=== PATIENT | male | born 1945 | race Caucasian/White ===

== ENCOUNTER 2017-05-26 12:56 | Inpatient (IN) | payer MEDICAID, MEDICARE ==
[~2017-05-26] VITALS: Ht 177.8 cm; Wt 78.0 kg
--- NOTE | 2017-05-26 12:56 | NUR ---
BBRA FROM [facility] FOR SYNCOPE WHILE SITTING ON W/C NS-118 HYPOTENSIVE IN THE FIELD, IV NS GIVEN BY EMS
[2017-05-26] MEDS ORDERED: IV NS 0.9% 1,000 ML BAG IV ONE (13:30)
[2017-05-26 13:50] LABS: BASOPHILS % (AUTO) 0.9 % (0.0-2.0); CALCIUM, SERUM 8.3 mg/dL (8.5-10.1); CARBON DIOXIDE 27 mmol/L (21-32); CHLORIDE 106 mmol/L (98-107); CREATININE 1.2 mg/dL (0.6-1.3); EOSINOPHILS # (AUTO) 0.2 /CMM (0.0-0.7); EOSINOPHILS % (AUTO) 3.4 % (0.0-6.0); GLUCOSE 106 mg/dL (74-106); HEMATOCRIT 42 % (39-51); HEMOGLOBIN 14.5 g/dL (13.5-17.5); LYMPHOCYTES # (AUTO) 1.3 /CMM (0.8-4.8); MEAN CORPUSCULAR HEMOGLOBIN 31 PG (26.0-33.0); MEAN CORPUSCULAR HGB CONC 34 g/dl (31.0-36.0); MEAN CORPUSCULAR VOLUME 91 fL (80-96); MONOCYTES # (AUTO) 0.7 /CMM (0.1-1.30); MONOCYTES % (AUTO) 12.6 % (2.0-12.0); NEUTROPHILS # (AUTO) 3.2 /CMM (1.8-8.9); NEUTROPHILS % (AUTO) 59.1 % (43.0-81.0); PLATELET COUNT (AUTO) 103 /CMM (150-450); POTASSIUM 4.2 mmol/L (3.5-5.1); RDW COEFFICIENT OF VARIATION 13.5 (11.5-15.0); RED BLOOD CELL COUNT(AUTO) 4.65 MIL/uL (4.5-6.0); SODIUM SERUM 141 mmol/L (136-145); UREA NITROGEN, BLOOD 22 mg/dL (7-18); WHITE BLOOD COUNT (AUTO) 5.4 K/uL (4.3-11.0)
[2017-05-26 13:56] LABS: ALANINE AMINOTRANSFERASE 10 U/L (12-78); ALBUMIN 3.4 g/dL (3.4-5.0); ALKALINE PHOSPHATASE 92 U/L (46-116); ASPARTATE AMINOTRANSFERASE 14 U/L (15-37); BILIRUBIN,DIRECT 0.1 mg/dL (0.0-0.2); BILIRUBIN,TOTAL 0.3 mg/dL (0.2-1.0); TOTAL PROTEIN, SERUM 7.2 g/dL (6.4-8.2)
[2017-05-26 13:58] LABS: TROPONIN I < 0.017 ng/mL (0.00-0.056)
[2017-05-26 14:03] LABS: INR 1.12 (0.87-1.13); PROTHROMBIN TIME 11.7 SECS (9.5-12.7)
--- NOTE | 2017-05-26 14:40 | NUR ---
STRAIGHT CATH URINE SAMPLE COLLECTED SENT TO LAB
--- NOTE | 2017-05-26 14:58 | NUR ---
PT TAKENT TO CT
[2017-05-26 15:02] LABS: APPEARANCE,URINE CLOUDY (CLEAR); BILIRUBIN,URINE NEGATIVE (NEGATIVE); BLOOD, URINE 2+ Ery/uL (NEGATIVE); COLOR,URINE YELLOW (YELLOW); KETONES,URINE NEGATIVE (NEGATIVE); LEUKOCYTE ESTERASE ,URINE 3+ (NEGATIVE); NITRITE, URINE NEGATIVE (NEGATIVE); PROTEIN,URINE 1+ mg/dl (NEGATIVE); UGLUCOSE NEGATIVE (NEGATIVE); UROBILINOGEN,URINE 0.2 EU/dL (0.2)
[2017-05-26 15:24] LABS: BACTERIA,URINE Moderate /HPF (None Seen); SQUAMOUS EPITHELIAL CELL,UR Few /HPF (None Seen); WBC,URINE 51-80 /HPF (0-3)
[2017-05-26] MEDS ORDERED: PIPERACILLIN /TAZOBACTAM 2.25 G in IV D5W 50 ML IV ONE (17:00)
[2017-05-26] MEDS ORDERED: GABA300C PO (17:05)
[2017-05-26] MEDS ORDERED: TRAM50TA2 PO (17:05)
[2017-05-26] MEDS ORDERED: CHOL200026 PO (17:05)
[2017-05-26] MEDS ORDERED: PRIM50TA27 PO (17:05)
[2017-05-26] MEDS ORDERED: CARB-93 PO (17:05)
[2017-05-26] MEDS ORDERED: BISA10SU8 RC (17:05)
[2017-05-26] MEDS ORDERED: LEVO50TA8 PO (17:05)
[2017-05-26] MEDS ORDERED: ALEN70TA3 PO (17:05)
[2017-05-26] MEDS ORDERED: DOCU-141 PO (17:05)
[2017-05-26] MEDS ORDERED: MAGN400O6 PO (17:05)
[2017-05-26] MEDS ORDERED: TAMS-12 PO (17:05)
[2017-05-26] MEDS ORDERED: MAGNESIUM HYDROXIDE 30 ML UDC PO PRN (18:00)
[2017-05-26] MEDS ORDERED: BISACODYL SUPP (10 MG) 10 MG/SUPP.RECT SUPP.RECT RC PRN (18:00)
--- NOTE | 2017-05-26 18:30 | NUR ---
CALLED PHARMACY FOR PM MEDS
[2017-05-26] MEDS: CARBIDOPA/LEVODOPA 25/100 MG 1 UDTAB PO SCH ×2 (18:58→21:00)
[2017-05-26] MEDS: PRIMIDONE 50 MG TABLET PO SCH (18:59)
[2017-05-26] MEDS: CHOLECALCIFEROL 1,000 UNIT TABLET (VIT D3) PO SCH (18:59)
[2017-05-26] MEDS: GABAPENTIN 300 MG CAPSULE PO SCH (18:59)
[2017-05-26] MEDS: LEVOTHYROXINE SODIUM 50 MCG TABLET PO SCH (18:59)
[2017-05-26] MEDS ORDERED: TRAMADOL HCL 50 MG TABLET ONE (19:06)
--- NOTE | 2017-05-26 19:14 | NUR ---
GAVE REPORT TO NICOL MONTIEL FOR LOYD
--- NOTE | 2017-05-26 19:20 | NUR ---
Bridgett cooper in ED - 05/26/17 at 1931 by OLI IN N OUT CATH TAKEN OUT PER NO URINE RECEIVED. MD EGAN AWARE
[2017-05-26] MEDS: TRAMADOL HCL 50 MG TABLET PO SCH ×2 (20:03→21:00)
[2017-05-26] MEDS ORDERED: ONDANSETRON HCL/PF 4 MG/2 ML VIAL IV PRN (23:30)
[2017-05-26] MEDS ORDERED: ACETAMINOPHEN 325 MG TABLET PO PRN (23:30)
[2017-05-26] MEDS ORDERED: PANTOPRAZOLE 40 MG VIAL IV SCH (23:30)
[2017-05-26] MEDS ORDERED: IV NS 0.9% 1,000 ML BAG IV PRN (23:30)
[2017-05-26] MEDS ORDERED: ENOXAPARIN SODIUM 30 MG/0.3 ML DISP.SYRIN SQ SCH (23:30)
--- NOTE | 2017-05-26 23:30 | NUR ---
BONE CHAR KILN OPERATOR ADMIN NOTES PT WAS BROUGHT UP VIA GURNEY BY ER. A/O X2, CONFUSED AT TIMES. PT IS ON RA BREATHING EVENLY AND UNLABORED, NO SIGNS OF SOB OR DISTRESS. ORDERS TO BE ENTERED AND CARRIED OUT. TELE MONITOR SHOWING SB 56 WITH 1ST AV BLOCK. IV ACCESS IS INTACT AND PATENT. BED IS IN LOW AND LOCKED POSITION, CALL LIGHT WITHIN REACH. BED ALARM IS ON. WILL CONTINUE TO MONITOR PT
[2017-05-26] MEDS ORDERED: PANTOPRAZOLE 40 MG VIAL ONE (23:44)
[2017-05-26] MEDS ORDERED: ENOXAPARIN SODIUM 30 MG/0.3 ML DISP.SYRIN ONE (23:44)
[2017-05-26] MEDS ORDERED: PIPERACILLIN /TAZOBACTAM 3.375 G VIAL IV ONE (23:45)
[2017-05-26] MEDS: PIPERACILLIN /TAZOBACTAM 3.375 G in IV D5W 50 ML IV SCH (23:54)
[2017-05-26] MEDS: DOCUSATE SODIUM 100 MG CAPSULE PO SCH (23:55)
[2017-05-26] MEDS: TAMSULOSIN 0.4 MG CAP.SR.24H PO SCH (23:55)
[2017-05-27] MEDS ORDERED: PIPERACILLIN /TAZOBACTAM 3.375 G VIAL IV ONE (05:11)
[2017-05-27] MEDS: PIPERACILLIN /TAZOBACTAM 3.375 G in IV D5W 50 ML IV SCH ×4 (05:23→23:50)
--- NOTE | 2017-05-27 06:18 | NUR ---
REAL ESTATE LOAN PROCESSOR CLOSING NOTES PT IS IN BED SLEEPING, EASILY AROUSED. NO SIGNS OF SOB OR DISTRESS, BREATHING EVENLY AND UNLABORED ON RA, SATING >95%. ALL DUE MEDICATIONS GIVEN. ALL NEEDS WERE ANTICIPATED AND MET. BED IS IN LOW AND LOCKED POSITION, CALL LIGHT WITHIN REACH. WILL ENDORSE TO DAYSHIFT
--- NOTE | 2017-05-27 07:40 | NUR ---
SKIP OPERATOR OPENING NOTE PATIENT IS ALERT AND ORIENTED x2-3. NO PAIN AT THIS TIME. NO SOB OR DISTRESS NOTED. CALL LIGHT WITHIN REACH. SAFETY MEASURES IMPLEMENTED. ABLE TO COMMUNICATE NEEDS. IV ON LEFT FOREARM INTACT AND PATENT NO REDNESS OR SWELLING NOTED, IV FLUIDS RUNNING AT THIS TIME. TELE MONITOR-SB 56. AWAITING SWALLOW EVALUATION. WILL CONTINUE TO MONITOR THROUGHOUT SHIFT
[2017-05-27 08:00] VITALS: BP 128/92
[2017-05-27] MEDS: CARBIDOPA/LEVODOPA 25/100 MG 1 UDTAB PO SCH ×4 (08:15→21:54)
[2017-05-27] MEDS: PRIMIDONE 50 MG TABLET PO SCH ×2 (08:15→17:01)
[2017-05-27] MEDS: LEVOTHYROXINE SODIUM 50 MCG TABLET PO SCH (08:15)
[2017-05-27] MEDS: GABAPENTIN 300 MG CAPSULE PO SCH ×2 (08:15→17:01)
[2017-05-27] MEDS: TRAMADOL HCL 50 MG TABLET PO SCH ×2 (09:00→21:54)
[2017-05-27 10:04] LABS: BASOPHILS % (AUTO) 0.8 % (0.0-2.0); EOSINOPHILS # (AUTO) 0.2 /CMM (0.0-0.7); EOSINOPHILS % (AUTO) 5.8 % (0.0-6.0); HEMATOCRIT 40 % (39-51); HEMOGLOBIN 13.9 g/dL (13.5-17.5); LYMPHOCYTES # (AUTO) 1.3 /CMM (0.8-4.8); LYMPHOCYTES % (AUTO) 32.2 % (20.0-44.0); MEAN CORPUSCULAR HEMOGLOBIN 31 PG (26.0-33.0); MEAN CORPUSCULAR HGB CONC 35 g/dl (31.0-36.0); MEAN CORPUSCULAR VOLUME 90 fL (80-96); MONOCYTES # (AUTO) 0.4 /CMM (0.1-1.30); MONOCYTES % (AUTO) 8.4 % (2.0-12.0); NEUTROPHILS # (AUTO) 2.2 /CMM (1.8-8.9); NEUTROPHILS % (AUTO) 52.8 % (43.0-81.0); PLATELET COUNT (AUTO) 94 /CMM (150-450); RDW COEFFICIENT OF VARIATION 13.6 (11.5-15.0); RED BLOOD CELL COUNT(AUTO) 4.48 MIL/uL (4.5-6.0); WHITE BLOOD COUNT (AUTO) 4.2 K/uL (4.3-11.0)
[2017-05-27 11:30] LABS: CARBON DIOXIDE 21 mmol/L (21-32); CHLORIDE 109 mmol/L (98-107); CREATININE 1.3 mg/dL (0.6-1.3); GLUCOSE 168 mg/dL (74-106); POTASSIUM 4.2 mmol/L (3.5-5.1); SODIUM SERUM 143 mmol/L (136-145); UREA NITROGEN, BLOOD 17 mg/dL (7-18)
[2017-05-27 11:36] LABS: ALANINE AMINOTRANSFERASE 14 U/L (12-78); ALBUMIN 3.1 g/dL (3.4-5.0); ALKALINE PHOSPHATASE 85 U/L (46-116); ASPARTATE AMINOTRANSFERASE 18 U/L (15-37); BILIRUBIN,TOTAL 0.4 mg/dL (0.2-1.0); MAGNESIUM 1.6 mg/dL (1.8-2.4); PHOSPHORUS 2.3 mg/dL (2.5-4.9); TOTAL PROTEIN, SERUM 6.7 g/dL (6.4-8.2)
[2017-05-27] MEDS: IV NS 0.9% 1,000 ML IV PRN (13:59)
[2017-05-27] MEDS ORDERED: K PHOS NEUTRAL 250 MG TABLET PO ONE (14:30)
[2017-05-27 16:00] VITALS: BP 126/74
[2017-05-27] MEDS: CHOLECALCIFEROL 1,000 UNIT TABLET (VIT D3) PO SCH (17:03)
--- NOTE | 2017-05-27 18:30 | NUR ---
MS RN CLOSING NOTE PATIENT IS ALERT AND ORIENTED X3. NO PAIN AT THIS TIME. NO SOB OR DISTRESS NOTED. CALL LIGHT WITHIN REACH AT ALL TIMES. SAFETY MEASURES IMPLEMENTED. ABLE TO COMMUNICATE NEEDS. ALL DUE MEDICATIONS GIVEN ORDERED. ALL NURSING CARE NEEDS ATTENDED TO NEEDED. IV INTACT AND PATENT NO REDNESS OR SWELLING NOTED, IV FLUIDS RUNNING AT THIS TIME AT 100 ML/HR TOLERATING WELL. ON ROOM AIR TOLERATING WELL. MAGNESIUM REPLACING AT THIS TIME. LABS IN THE MORNING. PATIENT REFUSED PHYSICAL THERAPY THIS AFTERNOON. ECHO WILL BE DONE IN THE MORNING. WILL ENDORSE TO STAVE BLOCK ROLLER NURSE
[2017-05-27] MEDS: Magnesium 1GM/D5W 100ML PREMIX 100 ML IV SCH (18:48)
--- NOTE | 2017-05-27 19:20 | NUR ---
RN OPEN NOTES RECEIVED PATIENT AWAKE IN BED. A/O X2-3. NO SIGNS OF DISTRESS OR DISCOMFORT. BREATHING EVEN AND UNLABORED. IV ACCESS IN LFA WITH MAG CURRENTLY INFUSING, PATENT AND INTACT, NO SIGNS OF REDNESS OR INFILTRATION. BED IN LOW LOCKED POSITION WITH SIDE RAILS X2. CALL LIGHT WITHIN REACH. WILL CONTINUE TO MONITOR.
[2017-05-27 20:00] VITALS: BP 122/73
[2017-05-27 20:05] VITALS: BP 122/73
[2017-05-27] MEDS ORDERED: PANTOPRAZOLE 40 MG VIAL IV SCH (21:00)
[2017-05-27] MEDS ORDERED: ENOXAPARIN SODIUM 30 MG/0.3 ML DISP.SYRIN SQ SCH (21:00)
[2017-05-27] MEDS: DOCUSATE SODIUM 100 MG CAPSULE PO SCH (21:52)
[2017-05-27] MEDS: TAMSULOSIN 0.4 MG CAP.SR.24H PO SCH (21:52)
[2017-05-28] MEDS ORDERED: Magnesium 1GM/D5W 100ML PREMIX 100 ML IV ONE (00:05)
[2017-05-28] MEDS: Magnesium 1GM/D5W 100ML PREMIX 100 ML IV SCH (01:07)
[2017-05-28] MEDS: PIPERACILLIN /TAZOBACTAM 3.375 G in IV D5W 50 ML IV SCH ×2 (05:06→11:59)
[2017-05-28] MEDS: IV NS 0.9% 1,000 ML IV PRN (05:07)
[2017-05-28 06:33] LABS: BASOPHILS % (AUTO) 0.9 % (0.0-2.0); EOSINOPHILS # (AUTO) 0.3 /CMM (0.0-0.7); EOSINOPHILS % (AUTO) 5.9 % (0.0-6.0); HEMATOCRIT 39 % (39-51); HEMOGLOBIN 13.5 g/dL (13.5-17.5); LYMPHOCYTES # (AUTO) 1.5 /CMM (0.8-4.8); LYMPHOCYTES % (AUTO) 32.5 % (20.0-44.0); MEAN CORPUSCULAR HEMOGLOBIN 31 PG (26.0-33.0); MEAN CORPUSCULAR HGB CONC 35 g/dl (31.0-36.0); MEAN CORPUSCULAR VOLUME 91 fL (80-96); MONOCYTES # (AUTO) 0.5 /CMM (0.1-1.30); NEUTROPHILS # (AUTO) 2.4 /CMM (1.8-8.9); NEUTROPHILS % (AUTO) 49.7 % (43.0-81.0); PLATELET COUNT (AUTO) 101 /CMM (150-450); RDW COEFFICIENT OF VARIATION 13.4 (11.5-15.0); RED BLOOD CELL COUNT(AUTO) 4.31 MIL/uL (4.5-6.0); WHITE BLOOD COUNT (AUTO) 4.8 K/uL (4.3-11.0)
[2017-05-28 07:02] LABS: ALANINE AMINOTRANSFERASE 8 U/L (12-78); ALKALINE PHOSPHATASE 77 U/L (46-116); ASPARTATE AMINOTRANSFERASE 11 U/L (15-37); BILIRUBIN,TOTAL 0.4 mg/dL (0.2-1.0); CALCIUM, SERUM 7.9 mg/dL (8.5-10.1); CARBON DIOXIDE 26 mmol/L (21-32); CHLORIDE 110 mmol/L (98-107); CREATININE 1.3 mg/dL (0.6-1.3); GLUCOSE 106 mg/dL (74-106); MAGNESIUM 2.2 mg/dL (1.8-2.4); PHOSPHORUS 2.8 mg/dL (2.5-4.9); SODIUM SERUM 143 mmol/L (136-145); TOTAL PROTEIN, SERUM 6.3 g/dL (6.4-8.2); UREA NITROGEN, BLOOD 16 mg/dL (7-18)
[2017-05-28 07:05] LABS: TROPONIN I < 0.017 ng/mL (0.00-0.056)
[2017-05-28 08:00] VITALS: BP 149/84
[2017-05-28] MEDS: LEVOTHYROXINE SODIUM 50 MCG TABLET PO SCH (08:23)
[2017-05-28] MEDS: TRAMADOL HCL 50 MG TABLET PO SCH (08:23)
[2017-05-28] MEDS: GABAPENTIN 300 MG CAPSULE PO SCH (08:24)
[2017-05-28] MEDS: CARBIDOPA/LEVODOPA 25/100 MG 1 UDTAB PO SCH ×2 (08:24→12:00)
[2017-05-28] MEDS: PRIMIDONE 50 MG TABLET PO SCH (08:24)
[2017-05-28 09:48] LABS: THYROID STIMULATING HORMONE 2.231 uIU/mL (0.358-3.74)
--- NOTE | 2017-05-28 13:41 | NUR ---
RN CLOSING NOTES PATIENT AWAKE IN BED. A/O X2 . NO SIGNS OF DISTRESS OR DISCOMFORT. BREATHING EVEN AND UNLABORED. IV ACCESS IN RFA WITH ZOSYN CURRENTLY INFUSING, PATENT AND INTACT, NO SIGNS OF REDNESS OR INFILTRATION. ALL NEEDS MET. NO SIGNIFICANT CHAGNES. BED IN LOW LOCKED POSITION WITH SIDE RAILS X2. CALL LIGHT WITHIN REACH. PAT[facility] CALLED REPORT TO [facility]. SCHEDULED FOR PICKUP AT 1400. ENDORSED TO KACEY MONTIEL FOR LOYD.
--- NOTE | 2017-05-28 14:00 | NUR ---
DISCHARGED PT VIA AMBULANCE WITH STABLE V/S TO [facility].PT IS CONFUSED.REPORT CALLED IN TO DINESH FRAGOSO.PT HAS NO S/S OF PAIN OR DISTRESS.HEPLOCK REMOVED TO LT HAND WITH NO BLEEDING OR SWELLING NOTED ON THE SITE.
== END 2017-05-28 14:00 | DRG 48 ==
LOC: ER 12:59 → TRANSITION 18:22 → TELE 21:48 → MED 05-27 09:06
PROVIDERS: ADMIT Legal Medicine; ATTEND Legal Medicine
DX: G90.8 Other disorders of autonomic nervous system (principal); G93.40 Encephalopathy, unspecified; N18.4 Chronic kidney disease, stage 4 (severe); G20 Parkinson's disease; D69.6 Thrombocytopenia, unspecified; N39.0 Urinary tract infection, site not specified; F02.80 Dementia in other diseases classified elsewhere, unspecified severity, without behavioral disturbance, psychotic disturbance, mood disturbance, and anxiety; R13.10 Dysphagia, unspecified; G40.909 Epilepsy, unspecified, not intractable, without status epilepticus; I12.9 Hypertensive chronic kidney disease with stage 1 through stage 4 chronic kidney disease, or unspecified chronic kidney disease; E03.9 Hypothyroidism, unspecified; D64.9 Anemia, unspecified; K59.00 Constipation, unspecified; N40.0 Benign prostatic hyperplasia without lower urinary tract symptoms; N20.0 Calculus of kidney; M81.0 Age-related osteoporosis without current pathological fracture; Z87.820 Personal history of traumatic brain injury; Z88.5 Allergy status to narcotic agent; F32.9 Major depressive disorder, single episode, unspecified; F09 Unspecified mental disorder due to known physiological condition; M19.90 Unspecified osteoarthritis, unspecified site; Z79.899 Other long term (current) drug therapy
CPT/HCPCS: 36415; 70450-TC; 71045-TC; 80048-TC; 80053-TC; 80076-TC; 81000-TC; 82306; 83605-TC; 83735-TC; 84100-TC; 84439-TC; 84443-TC; 84484-TC; 85025-TC; 85730-TC; 87040-TC; 87081-TC; 87086-TC; 92526; 92611-TC; A4606; C9113; J1650; J2543; J3475; J7030; J7060; Z7610

== ENCOUNTER 2017-11-28 17:01 | Inpatient (IN) | payer MEDICAID, MEDICARE ==
[~2017-11-28] VITALS: Ht 177.8 cm; Wt 70.8 kg
[~2017-11-28 17:01] MED LIST: ALEN70TA3 PO; BISA10SU8 RC; CARB-93 PO; CHOL200026 PO; DOCU-141 PO; GABA300C PO; LEVO50TA8 PO; MAGN400O6 PO; PRIM50TA27 PO; TAMS-12 PO; TRAM50TA2 PO
--- NOTE | 2017-11-28 17:05 | NUR ---
BIBPA FROM [facility] D/T LEFT SIDED NECK MASS/LUMP NOTED THIS AM. NECK MASS IS TENDER TO TOUCH WITH SLIGHT REDNESS. PATIENT IS AFEBRILE, AIRWAY PATENT, NO SOB. VSS
--- NOTE | 2017-11-28 17:24 | NUR ---
IV ACCESSED TO [facility] 20. BLOOD SAMPLE COLLECTED AND SENT TO LAB
[2017-11-28] MEDS ORDERED: PIPERACILLIN /TAZOBACTAM 3.375 G in IV D5W 50 ML IV ONE (17:30)
[2017-11-28] MEDS ORDERED: IV NS 0.9% 1,000 ML BAG IV ONE ×2 (17:30→18:30)
[2017-11-28] MEDS ORDERED: VANCOMYCIN 1 GM in IV D5W 250 ML IV ONE (17:30)
[2017-11-28 17:37] LABS: BASOPHILS # (AUTO) 0.1 /CMM (0.0-0.2); BASOPHILS % (AUTO) 0.5 % (0.0-2.0); EOSINOPHILS % (AUTO) 0.7 % (0.0-6.0); HEMATOCRIT 46 % (39-51); HEMOGLOBIN 15.8 g/dL (13.5-17.5); LYMPHOCYTES # (AUTO) 1.4 /CMM (0.8-4.8); LYMPHOCYTES % (AUTO) 9.7 % (20.0-44.0); MEAN CORPUSCULAR HEMOGLOBIN 31 PG (26.0-33.0); MEAN CORPUSCULAR HGB CONC 34 g/dl (31.0-36.0); MEAN CORPUSCULAR VOLUME 91 fL (80-96); NEUTROPHILS # (AUTO) 11.9 /CMM (1.8-8.9); NEUTROPHILS % (AUTO) 82.1 % (43.0-81.0); PLATELET COUNT (AUTO) 131 /CMM (150-450); RDW COEFFICIENT OF VARIATION 12.9 (11.5-15.0); RED BLOOD CELL COUNT(AUTO) 5.09 MIL/uL (4.5-6.0); WHITE BLOOD COUNT (AUTO) 14.5 K/uL (4.3-11.0)
--- NOTE | 2017-11-28 17:37 | NUR ---
EKG IN PROGRESS
[2017-11-28 17:43] LABS: CALCIUM, SERUM 8.6 mg/dL (8.5-10.1); CARBON DIOXIDE 25 mmol/L (21-32); CHLORIDE 104 mmol/L (98-107); CREATININE 1.6 mg/dL (0.6-1.3); GLUCOSE 128 mg/dL (74-106); SODIUM SERUM 139 mmol/L (136-145); UREA NITROGEN, BLOOD 51 mg/dL (7-18)
[2017-11-28] MEDS ORDERED: PRIM50TA PO (17:44)
[2017-11-28] MEDS ORDERED: OMEG1CAP PO (17:44)
[2017-11-28] MEDS ORDERED: CALC500T52 PO (17:44)
[2017-11-28] MEDS ORDERED: MULT-447 PO (17:44)
[2017-11-28] MEDS ORDERED: ACET-868 PO (17:44)
[2017-11-28] MEDS ORDERED: LACT-58 PO (17:44)
[2017-11-28] MEDS ORDERED: POLY15DR40 EACHEYE (17:44)
[2017-11-28] MEDS ORDERED: NA P133E RC (17:44)
--- NOTE | 2017-11-28 18:03 | NUR ---
PT ON BED. VSS
[2017-11-28 18:16] LABS: INR 1.18 (0.87-1.13)
[2017-11-28] MEDS ORDERED: IOHEXOL-300 100 ML VIAL IV ONE (18:31)
--- NOTE | 2017-11-28 18:51 | NUR ---
PT IS BACK FROM CT
--- NOTE | 2017-11-28 19:10 | NUR ---
REPORT RECEIVED FROM DINESH JAMES FOR LOYD.
--- NOTE | 2017-11-28 19:13 | NUR ---
REPORT GIVEN TO DINESH RAPP
--- NOTE | 2017-11-28 20:18 | NUR ---
DIANE PAGED, ADA ACCOMMODATION CONSULTANT
--- NOTE | 2017-11-28 21:33 | NUR ---
MS 323-2 FOR DEHYDRATION, ADMITTING
--- NOTE | 2017-11-28 21:49 | NUR ---
REPORT GIVEN TO DINESH CASTANON FOR LOYD.
--- NOTE | 2017-11-28 21:55 | NUR ---
PT TRANSPORTED TO [facility] VIA STRETCHER WITH EMT. TIFFANIES.
[2017-11-28 22:00] VITALS: BP 137/83
--- NOTE | 2017-11-28 22:00 | NUR ---
ADMISSION NOTES: RECEIVED REPORT FROM TAMELA MONTIEL, [facility], CAME IN DUE TO LUMP/MASS ON NECK AREA, PT ADMITTED UNDER EPIC GROUP DX OF SIALADENITIS, ACUTE RENAL FAILURE, DHN. PT BROUGHT TO THE UNIT VIA GURNEY, A/O X1-2, GARBLED SPEECH, ALSO C/O DIFFICULTY SWALLOWING AND UNABLE TO EAT FOR 2DAYS, NOTED TONGUE SWELLING TOO. ORIENTED PT TO UNIT POLICY AND HOURLY ROUNDING, USE OF CALL LIGHT. PT HAS RIGHT AC G 20 PATENT AND FLUSHING WELL, ON HL. SKIN ASSESSMENT PERFORMED WITH ANOTHER N, SKIN ISSUES NOTED, PICTURES TAKEN, ATTACHED TO CHART, WOUND CONSULT ORDERED, KCI WILL BE ORDER. BLE OFFLOADED. SUCTION SET UP SECURED, PLACED ON ASPIRATION PRECAUTION. INVENTORY OF BELONGING COMPLETED BY DENTAL INSURANCE COORDINATOR. SAFETY PRECAUTIONS FOR FALL INITIATED, CALL LIGHT IN REACH, WILL CONTINUE MONITORING PT.
--- NOTE | 2017-11-28 22:30 | NUR ---
RN NOTES: SUCTION ORAL SECRETIONS. ORAL CARE PROVIDED
[2017-11-28] MEDS ORDERED: KETOROLAC TROMETHAMINE INJ 30 MG/ML VIAL IV PRN (23:00)
[2017-11-28] MEDS ORDERED: ONDANSETRON HCL/PF 4 MG/2 ML VIAL IVP PRN (23:00)
[2017-11-28] MEDS ORDERED: LORAZEPAM INJ 2 MG/ML VIAL IV PRN (23:00)
[2017-11-28] MEDS ORDERED: BISACODYL SUPP (10 MG) 10 MG/SUPP.RECT SUPP.RECT RC PRN (23:00)
[2017-11-28] MEDS ORDERED: ACETAMINOPHEN 650 MG/SUPP.RECT RC PRN (23:00)
[2017-11-28] MEDS ORDERED: NA PHOS,M-B/NA PHOS,DI-BA 1 EA ENEMA RC PRN (23:00)
--- NOTE | 2017-11-28 23:00 | NUR ---
RN NOTES: PT HAS POLST FROM FACILITY. WRITTEN/SIGNED ON 09/11/16, SIGNED BY ORLANDO CANSECO, COUSIN OF THE PT. THE POLST IS "DNR, COMFORT FOCUSED TREATMENT, NO ARTIFICIAL MEANS OF NUTRITION". INFORMED AD OPERATIONS INTERN ABOUT IT, WILL FOLLOW UP WITH FAMILY/DPOA IN AM IF WOULD LIKE TO CONTINUE WITH THE CODE STATUS DNR/COMFORT FOCUSED TREATMENT. MADE AWARE.
[2017-11-28] MEDS ORDERED: PIPERACILLIN /TAZOBACTAM 2.25 G VIAL IV ONE (23:10)
[2017-11-28] MEDS: IV D5/0.45 NACL 1,000 ML IV PRN (23:33)
[2017-11-28] MEDS: PIPERACILLIN /TAZOBACTAM 2.25 G in IV NS 0.9% 50 ML IV SCH (23:34)
--- NOTE | 2017-11-28 23:34 | NUR ---
ADMINISTRATION OF ZOSYN: NEW ORDER FROM , MEDICATION OVERRIDE BY CIRCULAR KNIFE CUTTER MACHINE DELONG, UPON SCANNING MEDICATION IT APPEARS "UNKNOWN NDC NUMBER", ADMINISTER MEDICATION AT THIS TIME, 5RIGHT'S VERIFIED. PER CIRCULAR KNIFE CUTTER MACHINE TO USE THE NEW PROTOCOL ZOSYN TO BE INFUSED FOR 6HRS, SO ZOSYN ADMINISTERED AT 8.33ML/HR.
--- NOTE | 2017-11-29 01:29 | NUR ---
RN NOTES: SEEN PT SLEEPING AT THIS TIME, RESPIRATION EVEN AND UNLABORED
[2017-11-29] MEDS ORDERED: PIPERACILLIN /TAZOBACTAM 2.25 G VIAL IV ONE (05:36)
[2017-11-29] MEDS: PIPERACILLIN /TAZOBACTAM 2.25 G in IV NS 0.9% 50 ML IV SCH (05:40)
[2017-11-29 06:51] LABS: BASOPHILS % (AUTO) 0.3 % (0.0-2.0); EOSINOPHILS % (AUTO) 1.7 % (0.0-6.0); HEMATOCRIT 41 % (39-51); HEMOGLOBIN 14.3 g/dL (13.5-17.5); LYMPHOCYTES # (AUTO) 1.4 /CMM (0.8-4.8); LYMPHOCYTES % (AUTO) 13.2 % (20.0-44.0); MEAN CORPUSCULAR HEMOGLOBIN 32 PG (26.0-33.0); MEAN CORPUSCULAR HGB CONC 35 g/dl (31.0-36.0); MEAN CORPUSCULAR VOLUME 92 fL (80-96); MONOCYTES % (AUTO) 9.5 % (2.0-12.0); NEUTROPHILS % (AUTO) 75.3 % (43.0-81.0); PLATELET COUNT (AUTO) 105 /CMM (150-450); RDW COEFFICIENT OF VARIATION 13.1 (11.5-15.0); RED BLOOD CELL COUNT(AUTO) 4.46 MIL/uL (4.5-6.0); WHITE BLOOD COUNT (AUTO) 10.6 K/uL (4.3-11.0)
--- NOTE | 2017-11-29 06:52 | NUR ---
RN CLOSING NOTES: PT IN BED, REMAINS A/O X1-2, ON 2L NC RESPIRATION EVEN AND UNLABORED. KEPT ON ASPIRATION PRECAUTION, SUCTION SET UP SECURED. IV ACCESS REMAIN PATENT AND FLUSHING WELL, INFUSING WITH D5 1/2 NS AT 70 ML/HR. BLE KEPT OFFLOADED. VS REMAINS STABLE, NEEDS ATTENDED. AWAITING WOUND CARE CONSULT, KCI, FOR SPEECH EVAL. SAFETY PRECAUTIONS FOR FALL REMAINS ENGAGED, CALL LIGHT IN REACH, WILL ENDORSE TO DAY RN FOR LOYD.
[2017-11-29 07:19] LABS: ALANINE AMINOTRANSFERASE 15 U/L (12-78); ALBUMIN 2.7 g/dL (3.4-5.0); ALKALINE PHOSPHATASE 67 U/L (46-116); ASPARTATE AMINOTRANSFERASE 18 U/L (15-37); BILIRUBIN,TOTAL 0.5 mg/dL (0.2-1.0); CALCIUM, SERUM 7.6 mg/dL (8.5-10.1); CARBON DIOXIDE 24 mmol/L (21-32); CHLORIDE 109 mmol/L (98-107); CREATININE 1.3 mg/dL (0.6-1.3); GLUCOSE 127 mg/dL (74-106); PHOSPHORUS 1.8 mg/dL (2.5-4.9); POTASSIUM 4.2 mmol/L (3.5-5.1); SODIUM SERUM 140 mmol/L (136-145); TOTAL PROTEIN, SERUM 6.9 g/dL (6.4-8.2); UREA NITROGEN, BLOOD 43 mg/dL (7-18)
[2017-11-29 07:28] LABS: CHOLESTEROL 94 mg/dL (<200); HDL CHOLESTEROL 24 mg/dL (40-60); LDL 60 mg/dL (0-99); THYROID STIMULATING HORMONE 3.113 uIU/mL (0.358-3.74); TRIGLYCERIDES 71 mg/dL (30-150)
--- NOTE | 2017-11-29 07:45 | NUR ---
MS MONTIEL OPENING NOTE RECEIVED BEDSIDE SBAR REPORT ON THE PATIENT. PATIENT IS A/O X4, ASLEEP, AWAKEN EASILY IN BED. BED IS LOCKED IN LOWEST POSITION, SIDE RAILS UP X3,BED ALARM IS ON. PATIENT IS UNABLE TO AMBULATE, BUT INDEPENDENT WITH BED MOBILITY. CALL LIGHT WITHIN REACH. EDUCATED THE PATIENT TO CALL FOR ASSISTANCE USING THE CALL LIGHT. PATIENT VERBALIZED UNDERSTANDING. CHEST RISING EQUALLY, BILATERALLY. SPO2 94% ON 2 LITERS OF OXYGEN VIA NASAL CANNULA. . VS WNL. LEFT NARE NGT PRESENT ON LOW INTERMITTENT SUCTION ORDERED. DENIES PAIN/DISCOMFORT AT THIS TIME. WILL CONTINUE TO ASSESS/MONITOR THROUGHOUT THE SHIFT. Addendum: 11/29/17 at 1853 by HAMZAH GEE RN PATIENT DOES NOT HAVE AN NG TUBE
[2017-11-29 08:00] VITALS: BP 122/62
--- NOTE | 2017-11-29 08:16 | NUR ---
DOCUMENTED PREVIOUS SHIFT'S MEDICATIONS NON-ADMINISTERED TO RID OF THE RED REMINDER
[2017-11-29] MEDS: PRIMIDONE 50 MG TABLET PO SCH ×2 (09:00→16:42)
[2017-11-29] MEDS: CARBIDOPA/LEVODOPA 25/100 MG 1 UDTAB PO SCH ×4 (09:00→21:00)
[2017-11-29] MEDS: POLYVINYL ALCOHOL 15 ML BOTTLE OP SCH ×3 (09:13→16:44)
[2017-11-29] MEDS: PANTOPRAZOLE 40 MG VIAL IV SCH (09:14)
--- NOTE | 2017-11-29 09:14 | NUR ---
PATIENT FAILED NURSING SWALLOW EVALUATION. DUE TO SWELLING OF THE TONGUE PRESENTS AT HIGH RISK OF ASPIRATION. ASPIRATION PRECAUTIONS IN PLACE. PATIENT PLACED NPO. WILL INFORM
--- NOTE | 2017-11-29 10:35 | NUR ---
DISCUSSED PATIENT'S CODE STATUS WITH THE FAMILY AT THE BEDSIDE. POLST PRESENTS IN CHART DNR. CODE STATUS TO BE CHANGED TO DNR. CHARGE NURSE GOLDIE ROBBINS.
[2017-11-29] MEDS ORDERED: Sodium Phosphate 7.5 MMOL in IV D5W 100 ML IV ONE (11:00)
--- NOTE | 2017-11-29 11:45 | NUR ---
RECEIVED VERBAL ORDERS FROM DR. MACIAS. ORDERS READ BACK AND VERIFIED. WILL FOLLOW ORDERS RECEIVED.
[2017-11-29] MEDS ORDERED: PIPERACILLIN /TAZOBACTAM 3.375 G in IV NS 0.9% 50 ML IV SCH (12:00)
[2017-11-29] MEDS ORDERED: ALBUTEROL FS 2.5 MG/3 ML VIAL.NEB NEB SCH (13:30)
[2017-11-29] MEDS: ALBUTEROL FS 2.5 MG/3 ML VIAL.NEB NEB SCH ×2 (13:42→19:38)
[2017-11-29 14:00] VITALS: BP 118/68
--- NOTE | 2017-11-29 15:44 | NUR ---
Patient resides at [facility] [phone] currently on bedhold x7days. Patient requires max assist with adl's. bed/chair fast most of the time . Current plan is to dc back to SNF once discharge. Addendum: 11/29/17 at 1545 by DERICK CARVAJAL RN Amended: Links added.
[2017-11-29 16:00] VITALS: BP 118/68
--- NOTE | 2017-11-29 16:58 | NUR ---
Increase IV rate to 100ml/hr per Dr Wilson
[2017-11-29] MEDS: IV D5/0.45 NACL 1,000 ML IV PRN (17:02)
[2017-11-29] MEDS: PIPERACILLIN /TAZOBACTAM 3.375 G in IV D5W 50 ML IV SCH (17:03)
[2017-11-29] MEDS ORDERED: FEE PK DOSING 1 MIN EA MC ONE (18:41)
--- NOTE | 2017-11-29 18:50 | NUR ---
MS RN CLOSING NOTE PATIENT IS A/O X4, ASLEEP, AWAKEN EASILY IN BED. BED IS LOCKED IN LOWEST POSITION, SIDE RAILS UP X3,BED ALARM IS ON. PATIENT IS UNABLE TO AMBULATE, BUT INDEPENDENT WITH BED MOBILITY. CALL LIGHT WITHIN REACH. EDUCATED THE PATIENT TO CALL FOR ASSISTANCE USING THE CALL LIGHT. PATIENT VERBALIZED UNDERSTANDING. CHEST RISING EQUALLY, BILATERALLY. SPO2 95% ON 2 LITERS OF OXYGEN VIA NASAL CANNULA. PATIENT SUCTIONED NEEDED THROUGHOUT THE SHIFT. SKIN CARE PROVIDED APROPPPRIATE. PATIENT REPOSITIONED EVERY TWO HOURS TO MAINTAIN FUNCTIONAL ALIGNMENT OF THE LIMBS. SPECIALTY MATRASS IN PLACE. RN SPOKE TO THE FAMILY/DPOA OVER THE PHONE GIVING THE UPDATES ON THE PATIENT'S CONDITION. VS WNL THROUGHOUT THE SHIFT. DENIES PAIN/DISCOMFORT AT THIS TIME. WILL ENDORSE TO THE INSURANCE SPECIALIST NURSE FOR LOYD.
--- NOTE | 2017-11-29 19:00 | NUR ---
MS RN OPENING NOTE Patient was seen sleeping in bed in high artis's position, but awoke easily to name. Patient is AAOx3, breathing on 2L O2 NC with no SOB, and no signs of acute distress. D5 1/2 NS is running through the right AC. Bed is in low/locked position, two side rails up, and call hodges within reach. Patient has no immediate needs or concerns at this time. Will continue to monitor.
[2017-11-29 20:00] VITALS: BP 128/87
[2017-11-29] MEDS: VANCOMYCIN 0.75 GM in IV D5W 250 ML IV SCH (20:07)
[2017-11-29] MEDS: TAMSULOSIN 0.4 MG CAP.SR.24H PO SCH (21:08)
[2017-11-30] MEDS: PIPERACILLIN /TAZOBACTAM 3.375 G in IV D5W 50 ML IV SCH ×4 (00:20→18:12)
[2017-11-30] MEDS: IV D5/0.45 NACL 1,000 ML IV PRN (05:13)
--- NOTE | 2017-11-30 06:51 | NUR ---
MS CLOSING NOTES Patient is AAOx2, breathing on 3L O2 NC with no SOB, and no signs of acute distress. Patient has moist cough and requires aspiration precautions; oral suction was provided throughout the shift as needed. Suction equipment is at the bedside. Patient slept intermittently throughout the night with no complications. D5 1/2NS is running through the right AC. Patient was turned and repositioned q2h. Bed is low/locked, in high artis's position, two side rails up, and call hodges within reach. All patient needs have been addressed this shift. Patient care endorsed to day shift nurse.
--- NOTE | 2017-11-30 07:22 | NUR ---
RN OPENING NOTES RECEIVED PATIENT IN BED RESTING. A/OX 2-3. ON 2LPM O2, SATTING @ 97%. HOB ELEVATED. NO ACUTE DISTRESS, NO SOB. NO COMPLAINTS OF PAIN AT THIS TIME. IV SITE INTACT AND PATENT. KEPT PATIENT SAFE AND COMFORTABLE. KEPT NPO, FOR SWALLOW EVAL. BED IN LOW/LOCKED POSITION, SIDERAILS UPX2, CALL LIGHT IN REACH. WILL CONTINUE TO MONITOR ACCORDINGLY
--- NOTE | 2017-11-30 07:25 | NUR ---
RN NOTES PER STEEL RULE DIE MAKER APPRENTICE, PREVIOUS RN VERIFIED PATIENT'S FAMILY REGARDING THE MEDICATION MYSOLINE (VERIFIED THAT PATIENT DOES NOT HAVE A HX OF SEIZURE AND PATIENT HAD BEEN HELD OF MYSOLINE BEFORE PER FAMILY).
[2017-11-30] MEDS: ALBUTEROL FS 2.5 MG/3 ML VIAL.NEB NEB SCH ×3 (07:35→19:48)
[2017-11-30] MEDS: VANCOMYCIN 0.75 GM in IV D5W 250 ML IV SCH ×2 (07:56→20:35)
[2017-11-30 08:00] VITALS: BP 114/63
[2017-11-30] MEDS: PANTOPRAZOLE 40 MG VIAL IV SCH (08:02)
[2017-11-30] MEDS: POLYVINYL ALCOHOL 15 ML BOTTLE OP SCH ×3 (08:05→18:12)
[2017-11-30 08:06] LABS: CARBON DIOXIDE 23 mmol/L (21-32); CHLORIDE 110 mmol/L (98-107); CREATININE 1.2 mg/dL (0.6-1.3); GLUCOSE 125 mg/dL (74-106); POTASSIUM 3.7 mmol/L (3.5-5.1); SODIUM SERUM 141 mmol/L (136-145); UREA NITROGEN, BLOOD 26 mg/dL (7-18)
[2017-11-30] MEDS: PRIMIDONE 50 MG TABLET PO SCH ×2 (08:19→17:00)
[2017-11-30] MEDS: CARBIDOPA/LEVODOPA 25/100 MG 1 UDTAB PO SCH ×4 (08:19→21:00)
[2017-11-30 11:11] LABS: HEMATOCRIT 39 % (39-51); MEAN CORPUSCULAR HEMOGLOBIN 31 PG (26.0-33.0); MEAN CORPUSCULAR HGB CONC 34 g/dl (31.0-36.0); MEAN CORPUSCULAR VOLUME 93 fL (80-96); RDW COEFFICIENT OF VARIATION 13.7 (11.5-15.0); RED BLOOD CELL COUNT(AUTO) 4.13 MIL/uL (4.5-6.0)
[2017-11-30 11:12] LABS: EOSINOPHILS % (AUTO) 4.6 % (0.0-6.0); LYMPHOCYTES % (AUTO) 22.6 % (20.0-44.0); NEUTROPHILS % (AUTO) 60.8 % (43.0-81.0); PLATELET COUNT (AUTO) 116 /CMM (150-450)
[2017-11-30 16:00] VITALS: BP 11/75
--- NOTE | 2017-11-30 19:33 | NUR ---
RN CLOSING NOTES PATIENT IN STABLE CONDITION. ALL NEEDS ATTENDED AND PROVIDED. KEPT PATIENT SAFE AND COMFORTABLE. TURNED AND REPOSITIONED EVERY 2 HRS NEEDED. BED IN LOW/LOCKED POSITION, SIDERAILS UP, HOB ELEVATED, CALL LIGHT IN REACH. ENDORSED TO NIGHT RN FOR LOYD.
--- NOTE | 2017-11-30 19:35 | NUR ---
MS/RN OPENING NOTES PT RECEIVED AWAKE, HOB ELEVATED FOR GOOD LUNG EXPANSION. BREATHING IS EVEN AND UNLABORED. DENIES SOB AND PAIN. NO S/S OF DISTRESS NOTED. ON CONTINUOUS PULSE OX SHOWING SPO2 94%. ON 3L O2 VIA NC. SUCTION SETUP AT BEDSIDE. IV TO RFA PATENT AND INTACT RUNNING IVF ORDERED. ABLE TO MAKE NEEDS KNOWN. BED IN LOW/LOCKED POSITION WITH CALL LIGHT IN REACH. SIDE RAILS UPX3 WITH BED ALARM ON FOR SAFETY. WILL CONTINUE TO MONITOR
[2017-11-30 20:00] VITALS: BP 115/64
[2017-11-30 20:33] VITALS: BP 115/64
--- NOTE | 2017-11-30 20:40 | NUR ---
MS/RN NOTES PT HEARD WITH EXCESSIVE SECRETIONS. PT REFUSING SUCTION. EXPLAINED RISKS/BENEFITS X3. PT STILL REFUSING. STATES HE "DOESNT NEED SUCTION". SPO2 90% ON 3L O2 VIA NC. WILL CONTINUE TO MONITOR Addendum: 11/30/17 at 2117 by VARINDER JOHNSTON RN SPO2 86-89% ON 3L O2. MANAGER PERIOPERATIVE AT BEDSIDE. EXPLAINED TO PT X3 ABOUT RISKS/BENEFITS OF SUCTIONING AND RETAINING SECRETIONS. PT AGREED TO ORAL SUCTION. PT TOLERATED WELL.
--- NOTE | 2017-11-30 20:46 | NUR ---
MS/RN NOTES APPLIED WARM WET WASHCLOTH TO LEFT CHEEK
[2017-11-30] MEDS: TAMSULOSIN 0.4 MG CAP.SR.24H PO SCH (21:17)
[2017-12-01] MEDS: PIPERACILLIN /TAZOBACTAM 3.375 G in IV D5W 50 ML IV SCH ×5 (00:07→23:26)
[2017-12-01] MEDS: IV D5/0.45 NACL 1,000 ML IV PRN ×2 (00:14→15:34)
--- NOTE | 2017-12-01 06:42 | NUR ---
MS/RN CLOSING NOTES PT ASLEEP, AROUSABLE TO NAME. HOB ELEVATED. REMAINS ON 3L O2 VIA NC, BREATHING EVEN AND UNLABORED, WITH CONTINUOUS PULSE OX. CURRENT SPO2 92%. NO S/S OF SOB NOTED, DENIES PAIN. SUCTION SETUP AT BEDSIDE. SUCTIONED PT PRN. APPLIED WARM WET TOWELS TO LEFT CHEEK/NECK Q2H ORDERED. IV TO RFA PATENT AND INTACT RUNNING IVF ORDERED. ASPIRATION PRECAUTIONS IMPLEMENTED. TURNED/REPOSITIONED Q2H. HEELS OFFLOADED. WILL ENDORSE TO DAY SHIFT RN LOYD.
[2017-12-01] MEDS: ALBUTEROL FS 2.5 MG/3 ML VIAL.NEB NEB SCH ×3 (07:03→19:40)
--- NOTE | 2017-12-01 07:17 | NUR ---
RN OPENING NOTES RECEIVED PATIENT IN BED RESTING. A/OX 2-3, HOB ELEVATED FOR GOOD LUNG EXPANSION. BREATHING IS EVEN AND UNLABORED. DENIES SOB AND PAIN. NO S/S OF DISTRESS NOTED. ON CONTINUOUS PULSE OX SHOWING SPO2 94%. ON 3L O2 VIA NC. SUCTION SETUP AT BEDSIDE. IV TO RFA PATENT AND INTACT RUNNING IVF ORDERED. ABLE TO MAKE NEEDS KNOWN. BED IN LOW/LOCKED POSITION WITH CALL LIGHT IN REACH. SIDE RAILS UPX3 WITH BED ALARM ON FOR SAFETY. WILL CONTINUE TO MONITOR ACCORDINGLY
[2017-12-01 08:00] VITALS: BP 132/80
[2017-12-01 08:20] LABS: CALCIUM, SERUM 8.2 mg/dL (8.5-10.1); CARBON DIOXIDE 23 mmol/L (21-32); CHLORIDE 107 mmol/L (98-107); CREATININE 1.2 mg/dL (0.6-1.3); GLUCOSE 106 mg/dL (74-106); MAGNESIUM 1.7 mg/dL (1.8-2.4); PHOSPHORUS 2.6 mg/dL (2.5-4.9); POTASSIUM 3.4 mmol/L (3.5-5.1); SODIUM SERUM 138 mmol/L (136-145); UREA NITROGEN, BLOOD 16 mg/dL (7-18); VANCOMYCIN,TROUGH 17 ug/ml (12-20)
[2017-12-01 08:23] LABS: BASOPHILS % (AUTO) 0.7 % (0.0-2.0); EOSINOPHILS % (AUTO) 6.6 % (0.0-6.0); HEMATOCRIT 35 % (39-51); HEMOGLOBIN 12.6 g/dL (13.5-17.5); LYMPHOCYTES # (AUTO) 1.4 /CMM (0.8-4.8); LYMPHOCYTES % (AUTO) 24.9 % (20.0-44.0); MEAN CORPUSCULAR HEMOGLOBIN 33 PG (26.0-33.0); MEAN CORPUSCULAR HGB CONC 36 g/dl (31.0-36.0); MEAN CORPUSCULAR VOLUME 91 fL (80-96); MONOCYTES # (AUTO) 0.6 /CMM (0.1-1.30); MONOCYTES % (AUTO) 10.4 % (2.0-12.0); NEUTROPHILS # (AUTO) 3.3 /CMM (1.8-8.9); NEUTROPHILS % (AUTO) 57.4 % (43.0-81.0); PLATELET COUNT (AUTO) 103 /CMM (150-450); RDW COEFFICIENT OF VARIATION 12.4 (11.5-15.0); RED BLOOD CELL COUNT(AUTO) 3.85 MIL/uL (4.5-6.0); WHITE BLOOD COUNT (AUTO) 5.7 K/uL (4.3-11.0)
[2017-12-01] MEDS: CARBIDOPA/LEVODOPA 25/100 MG 1 UDTAB PO SCH ×4 (09:00→20:18)
[2017-12-01] MEDS: PRIMIDONE 50 MG TABLET PO SCH ×2 (09:00→17:14)
[2017-12-01] MEDS: POLYVINYL ALCOHOL 15 ML BOTTLE OP SCH ×3 (09:05→17:15)
[2017-12-01] MEDS: PANTOPRAZOLE 40 MG VIAL IV SCH (09:05)
[2017-12-01] MEDS: VANCOMYCIN 0.75 GM in IV D5W 250 ML IV SCH ×2 (09:05→19:56)
[2017-12-01] MEDS ORDERED: Magnesium 1GM/D5W 100ML PREMIX 100 ML IV SCH (10:00)
[2017-12-01] MEDS ORDERED: POTASSIUM CHLORIDE 20 MEQ POWDER PACKET PO SCH (10:00)
[2017-12-01] MEDS ORDERED: POTASSIUM CHLORIDE 20 MEQ TAB.PRT.SR PO ONE (10:00)
--- NOTE | 2017-12-01 10:48 | NUR ---
RN NOTES CHANGED KDUR 40 MEQ TABLET TO KLORCON 40 MEQ PACKET. VERIFIED WITH PHARMACY
[2017-12-01] MEDS ORDERED: POTASSIUM CHLORIDE 20 MEQ POWDER PACKET PO ONE (11:00)
[2017-12-01 16:00] VITALS: BP 134/76
--- NOTE | 2017-12-01 18:30 | NUR ---
PATIENT TOLERATED DIET WELL. ATE 50% LUNCH AND 75% DINNER.
--- NOTE | 2017-12-01 19:20 | NUR ---
MS RN OPENING NOTES: RECEIVED PT IN BED AND IS ON 2LPM VIA NC. LEFT SIDED SWELLING OF FACE NOTED. PT AWAKE AND IS A/OX2. SPEECH IS UNCLEAR BUT PT ABLE TO MAKE NEEDS KNOWN. PT HAS IV AND IS BEING INFUSED WITH IV D5 1/2 NS AT 100ML/HR. PT ON CONT PULSE OX. CALL LIGHT WITHIN PT'S REACH. BED KEPT IN LOW, LOCKED POSITION, AND SIDE RAILS X 2UP. WILL CONTINUE TO MONITOR PT.
[2017-12-01 20:00] VITALS: BP 134/73
[2017-12-01] MEDS: TAMSULOSIN 0.4 MG CAP.SR.24H PO SCH (21:38)
[2017-12-02] MEDS: IV D5/0.45 NACL 1,000 ML IV PRN (02:14)
--- NOTE | 2017-12-02 04:18 | NUR ---
MS RN NOTES: PT FOUND IN ROOM WITH IV PULLED OUT. R ARM ELEVATED. NEW IV STARTED ON R HAND #[id number].
[2017-12-02] MEDS: PIPERACILLIN /TAZOBACTAM 3.375 G in IV D5W 50 ML IV SCH ×2 (05:28→13:19)
--- NOTE | 2017-12-02 06:42 | NUR ---
MS RN CLOSING NOTES: ALL NEEDS WERE ATTENDED AND ANTICIPATED FOR. PT ON 2LPM VIA NC AND IS ON CONT PULSE OX. WARM TOWELS APPLIED TO LEFT SIDE OF FACE TO HELP DECREASE SWELLING. PT AT THIS TIME DOES NOT WANT IT HE WANTS TO REST AND IT IS WET. SUCTION AT BEDSIDE FOR ASPIRATION PRECAUTIONS. IV IS ON L HAND IS BEING INFUSED WITH IV D5 1/2 NS AT 100ML/HR. BED ALARM ACTIVATED. PT ON SCD PUMPS. PT TURNED AND REPOSITIONED Q2HR. CALL LIGHT WITHIN PT'S REACH. BED KEPT IN LOW, LOCKED POSITION, AND SIDE RAILS X 3 UP. WILL ENDORSE TO AM NURSE FOR LOYD.
[2017-12-02 06:56] LABS: BASOPHILS % (AUTO) 0.2 % (0.0-2.0); EOSINOPHILS % (AUTO) 7.9 % (0.0-6.0); HEMATOCRIT 40 % (39-51); HEMOGLOBIN 13.8 g/dL (13.5-17.5); LYMPHOCYTES # (AUTO) 1.3 /CMM (0.8-4.8); LYMPHOCYTES % (AUTO) 20.5 % (20.0-44.0); MEAN CORPUSCULAR HEMOGLOBIN 32 PG (26.0-33.0); MEAN CORPUSCULAR HGB CONC 34 g/dl (31.0-36.0); MEAN CORPUSCULAR VOLUME 92 fL (80-96); MONOCYTES # (AUTO) 0.6 /CMM (0.1-1.30); MONOCYTES % (AUTO) 10.2 % (2.0-12.0); NEUTROPHILS % (AUTO) 61.2 % (43.0-81.0); PLATELET COUNT (AUTO) 124 /CMM (150-450); RED BLOOD CELL COUNT(AUTO) 4.36 MIL/uL (4.5-6.0); WHITE BLOOD COUNT (AUTO) 6.4 K/uL (4.3-11.0)
[2017-12-02 06:59] LABS: CALCIUM, SERUM 8.7 mg/dL (8.5-10.1); CARBON DIOXIDE 26 mmol/L (21-32); CHLORIDE 105 mmol/L (98-107); CREATININE 1.2 mg/dL (0.6-1.3); GLUCOSE 117 mg/dL (74-106); MAGNESIUM 1.6 mg/dL (1.8-2.4); PHOSPHORUS 3.2 mg/dL (2.5-4.9); POTASSIUM 3.5 mmol/L (3.5-5.1); SODIUM SERUM 139 mmol/L (136-145); UREA NITROGEN, BLOOD 9 mg/dL (7-18)
--- NOTE | 2017-12-02 07:30 | NUR ---
AM RN NOTE Received patient awake, verbally responsive. On O2 2L/min via NC. Resp even and non-labored. Still noted swelling on left side of his face. IV site intact and patent. Bed in low locked position. Will continue to monitor.
[2017-12-02] MEDS: VANCOMYCIN 0.75 GM in IV D5W 250 ML IV SCH (07:52)
[2017-12-02] MEDS: ALBUTEROL FS 2.5 MG/3 ML VIAL.NEB NEB SCH ×2 (07:55→13:14)
[2017-12-02 08:00] VITALS: BP 133/76
[2017-12-02] MEDS: CARBIDOPA/LEVODOPA 25/100 MG 1 UDTAB PO SCH ×2 (08:42→12:43)
[2017-12-02] MEDS: POLYVINYL ALCOHOL 15 ML BOTTLE OP SCH ×2 (08:42→12:43)
[2017-12-02] MEDS: PRIMIDONE 50 MG TABLET PO SCH (08:44)
[2017-12-02] MEDS: PANTOPRAZOLE 40 MG VIAL IV SCH (09:21)
[2017-12-02] MEDS: Magnesium 1GM/D5W 100ML PREMIX 100 ML IV SCH ×2 (11:02→12:17)
[2017-12-02] MEDS ORDERED: PIPE3.379 IV (11:04)
[2017-12-02] MEDS ORDERED: RXVAN XX (11:04)
--- NOTE | 2017-12-02 14:22 | NUR ---
AM RN NOTE Patient resting in bed, no acute distress noted. Discharge order given by Dr. Scott noted and carried out. [facility] and report given on [facility]. Rahel made aware about Zosyn and Vancomycin IV orders and pharmacy to dose vanco per MD. Instructions on aspiration precautions and diet given to her. Skin pictures taken and placed in chart. Will leave the heplock in place since pt is being discharged with IV medications and Rahel aware.
--- NOTE | 2017-12-02 14:53 | NUR ---
AM RN NOTE Rahel made aware that next dose of Zosyn is due at 1800 today.
--- NOTE | 2017-12-02 15:36 | NUR ---
AM RN NOTE Pt awake, no acute distress noted. Report/discharge paperwork given to EMT's. V/S done by EMT, BP145/81 P74 R18 PA0/10 O2 sat 98% @RA. Belongings (Eyeglasses) endorsed to EMT's. HL #22 intact on right hand. Pt discharged/ left unit at this time as accompanied by 2 EMT's via [place].
== END 2017-12-02 15:35 | DRG 115 ==
LOC: ER 17:06 → MED 21:39
PROVIDERS: ADMIT Internal Medicine; ATTEND Internal Medicine
DX: K11.21 Acute sialoadenitis (principal); N17.0 Acute kidney failure with tubular necrosis; R65.11 Systemic inflammatory response syndrome (SIRS) of non-infectious origin with acute organ dysfunction; G93.40 Encephalopathy, unspecified; E83.42 Hypomagnesemia; D69.6 Thrombocytopenia, unspecified; D68.59 Other primary thrombophilia; G20 Parkinson's disease; I12.9 Hypertensive chronic kidney disease with stage 1 through stage 4 chronic kidney disease, or unspecified chronic kidney disease; N18.2 Chronic kidney disease, stage 2 (mild); Z86.73 Personal history of transient ischemic attack (TIA), and cerebral infarction without residual deficits; F02.80 Dementia in other diseases classified elsewhere, unspecified severity, without behavioral disturbance, psychotic disturbance, mood disturbance, and anxiety; E83.39 Other disorders of phosphorus metabolism; E03.9 Hypothyroidism, unspecified; N40.0 Benign prostatic hyperplasia without lower urinary tract symptoms; M81.0 Age-related osteoporosis without current pathological fracture; M19.90 Unspecified osteoarthritis, unspecified site; D72.829 Elevated white blood cell count, unspecified; J01.90 Acute sinusitis, unspecified; F09 Unspecified mental disorder due to known physiological condition; K21.9 Gastro-esophageal reflux disease without esophagitis; Z66 Do not resuscitate
CPT/HCPCS: 36415; 70491-TC; 71045-TC; 80048-TC; 80053-TC; 80061-TC; 80202-TC; 83605-TC; 83735-TC; 84100-TC; 84443-TC; 85025-TC; 85730-TC; 87040-TC; 87081-TC; 87086-TC; 92521; 92526; 94799-TC; A4216; A4606; A9563; C9113; J2543; J3370; J3475; J3490; J7030; J7060; Q9967; Z7610

== ENCOUNTER 2017-12-12 11:39 | Inpatient (IN) | payer MEDICAID, MEDICARE ==
[2017-12-12] VITALS (40 sets, daily range): BP systolic 67–150; BP diastolic 20–117
[~2017-12-12] VITALS: Ht 172.7 cm; Wt 73.0 kg
[~2017-12-12 11:39] MED LIST changes: +ACET-868 PO; +CALC500T52 PO; +LACT-58 PO; +MULT-447 PO; +NA P133E RC; +OMEG1CAP PO; +PIPE3.379 IV; +POLY15DR40 EACHEYE; +PRIM50TA PO; -PRIM50TA27 PO; +RXVAN XX
--- NOTE | 2017-12-12 11:46 | NUR ---
CALLED PATIENT'S PRIMARY DECISION MAKER SUE, ON THE PHONE WITH DR BOBO
--- NOTE | 2017-12-12 11:47 | NUR ---
PT [id number] FROM [facility] FOR DESATURATION, MORE ALTERED THAN USUAL, ABDOMINAL PAIN WITH EPISODE OF COFFEE GROUND EMESIS PER PARAMEDICS REPORT. IV ACCESS MRI MANAGER- ZOFRAN AND 500ML NS GIVEN ON THE FIELD. MD AT BS. RT AT BS. NOTED DNR ON CHART. SAFETY AND COMFORT MEASURES PROVIDED. WILL MONITOR.
[2017-12-12] MEDS: IV NS 0.9% 1,000 ML BAG IV ONE ×2 (12:05→12:33)
[2017-12-12] MEDS ORDERED: IV NS 0.9% 500 ML BAG IV ONE (12:30)
[2017-12-12 12:49] LABS: BASOPHILS # (AUTO) 0.1 /CMM (0.0-0.2); BASOPHILS % (AUTO) 0.3 % (0.0-2.0); HEMATOCRIT 45 % (39-51); LYMPHOCYTES # (AUTO) 0.7 /CMM (0.8-4.8); LYMPHOCYTES % (AUTO) 3.2 % (20.0-44.0); MEAN CORPUSCULAR HEMOGLOBIN 30 PG (26.0-33.0); MEAN CORPUSCULAR HGB CONC 33 g/dl (31.0-36.0); MEAN CORPUSCULAR VOLUME 91 fL (80-96); MONOCYTES # (AUTO) 0.6 /CMM (0.1-1.30); MONOCYTES % (AUTO) 2.9 % (2.0-12.0); NEUTROPHILS # (AUTO) 19.5 /CMM (1.8-8.9); NEUTROPHILS % (AUTO) 93.6 % (43.0-81.0); PLATELET COUNT (AUTO) 217 /CMM (150-450); RDW COEFFICIENT OF VARIATION 12.5 (11.5-15.0); RED BLOOD CELL COUNT(AUTO) 4.99 MIL/uL (4.5-6.0); WHITE BLOOD COUNT (AUTO) 20.9 K/uL (4.3-11.0)
--- NOTE | 2017-12-12 12:50 | NUR ---
FAMILY MEMBERS AT WITH DR. BOBO.
[2017-12-12 13:00] LABS: CALCIUM, SERUM 8.7 mg/dL (8.5-10.1); CARBON DIOXIDE 25 mmol/L (21-32); CHLORIDE 106 mmol/L (98-107); CREATININE 1.8 mg/dL (0.6-1.3); GLUCOSE 166 mg/dL (74-106); POTASSIUM 4.5 mmol/L (3.5-5.1); SODIUM SERUM 142 mmol/L (136-145); UREA NITROGEN, BLOOD 35 mg/dL (7-18)
[2017-12-12] MEDS ORDERED: IV NS 0.9% 1,000 ML BAG IV ONE (13:00)
--- NOTE | 2017-12-12 13:02 | NUR ---
SECOND EKG ORDER ERROR PER MD.
[2017-12-12] MEDS ORDERED: PIPERACILLIN /TAZOBACTAM 3.375 G in IV D5W 50 ML IV ONE (13:30)
--- NOTE | 2017-12-12 13:30 | NUR ---
Bridgett cooper in [facility] - 12/12/17 at 1346 by BOSTON ASKED PERMISSION TO PUT A PIV, REFUSED,DR BOBO INFORMED
[2017-12-12 13:37] LABS: ALANINE AMINOTRANSFERASE 11 U/L (12-78); ALBUMIN 2.8 g/dL (3.4-5.0); ALKALINE PHOSPHATASE 75 U/L (46-116); ASPARTATE AMINOTRANSFERASE 24 U/L (15-37); BILIRUBIN,DIRECT 0.1 mg/dL (0.0-0.2); BILIRUBIN,TOTAL 0.4 mg/dL (0.2-1.0)
[2017-12-12 13:39] LABS: INR 1.18 (0.85-1.15)
[2017-12-12 13:43] LABS: TROPONIN I < 0.017 ng/mL (0.00-0.056)
--- NOTE | 2017-12-12 13:52 | NUR ---
REPORT GIVEN TO OPAL MONTIEL FOR ICU 261.
--- NOTE | 2017-12-12 13:55 | NUR ---
PT TAKEN TO CT.
--- NOTE | 2017-12-12 14:15 | NUR ---
RECEIVED PATIENT FROM ER. A/OX2 ALERT FOLLOWS COMMANDS. PATIENT ON NRB 15LPM SATURATING 95%. DR TORRES ORDERS ADDED. PATIENT CONNECTED TO LIS THROUGH NG TUBE WITH COFFEE GROUND EMESIS NOTED 300ML ALREADY FROM SUCTION. IV SITE C/D/I/P WITH ANOTHER ADDED TO RIGHT H C/D/I/P. IVF HUNG PER MD ORDER. RT AT BEDSIDE FOR ABG. PATIENT BED BATH COMPLETED, SKIN CARE DONE. ASPIRATION, SKIN, AND SAFETY PRECAUTIONS IN PLACE. WILL MONITOR. BP STABLE AT THIS TIME.
[2017-12-12 15:06] LABS: ABG BASE EXCESS -1.8 mmol/L; ABG OXYGEN SATURATION 96.4 % (92.0-98.5); ABG PCO2 37.7 mmHg (35.0-45.0); ABG PH 7.397 (7.350-7.450); ABG PO2 90.3 mmHg (75.0-100.0); AaDO2 440.5 mmHg; COHb 0.5 % (0.5-1.5); MetHb 0.6 % (0.0-1.5); O2Hb 95.3 % (94.0-97.0); SITE, ABG Left Brachial; VENT MODE, BG non rebraether
[2017-12-12] MEDS: ALBUTEROL HALF STRENGTH 1.25 MG/3 ML VIAL.NEB NEB SCH ×2 (15:30→19:52)
[2017-12-12] MEDS: IPRATROPIUM NEB FS 0.5 MG/2.5 ML AMPUL.NEB NEB SCH ×2 (15:30→19:52)
--- NOTE | 2017-12-12 15:30 | NUR ---
ROTH CATH INSERTED PER MD. 400ML YELLOW CLEAR URINE OUTPUT Addendum: 12/12/17 at 1802 by OPAL RUSSELL RN STERILE TECHNIQUE OBSERVED. NO COMPLICATIONS NOTED
--- NOTE | 2017-12-12 16:00 | NUR ---
ABG DONE PT PLACED ON SIMPLE MASK COMPUTER SYSTEMS CONSULTANT AWARE OF RESULTS. HHN DEFERRED PT HAVING PICC LINE PLACEMENT.
--- NOTE | 2017-12-12 16:04 | NUR ---
MESSAGE TO DR TORRES. NOTIFIED OF CT ABD/PELVIS RESULTS. PICC LINE DINESH PEDRO AT BEDSIDE
[2017-12-12] MEDS: IV NS 0.9% 1,000 ML IV PRN (16:23)
[2017-12-12] MEDS ORDERED: ONDANSETRON HCL/PF 4 MG/2 ML VIAL IVP PRN (16:30)
[2017-12-12] MEDS ORDERED: ACETAMINOPHEN 325 MG TABLET PO PRN (16:30)
[2017-12-12] MEDS ORDERED: NOREPINEPHRINE 8 MG in IV D5W 500 ML IV PRN (16:30)
[2017-12-12] MEDS: ENOXAPARIN SODIUM 30 MG/0.3 ML DISP.SYRIN SQ SCH (16:52)
[2017-12-12] MEDS: FAMOTIDINE/PF INJ 20 MG/2 ML VIAL IV SCH (16:52)
--- NOTE | 2017-12-12 16:53 | NUR ---
PICC LINE PLACED. X RAY PENDING FOR PLACEMENT. CONFIRMED WITH DR TORRES HOLD LOVENOX AND PO/NG TUBE MEDICATIONS AT THIS TIME.
[2017-12-12] MEDS ORDERED: Z GUARD REMEDY 2 OZ OINT TP PRN (17:00)
--- NOTE | 2017-12-12 17:00 | NUR ---
CHEST X RESULTED. PICC LINE IN PLACE NO PNEUMO.
[2017-12-12] MEDS: ZOSYN IVPB 3.375 G in IV D5W 50ml IV SCH ×2 (17:11→23:17)
--- NOTE | 2017-12-12 18:32 | NUR ---
PATIENT RESTING. NO NOTED SOB, DIFFICULTY BREATHING. NG TUBE TO LIS PER ORDER. ROTH TO GRAVITY. SAFETY, ASPIRATION, AND SKIN PRECAUTIONS IN PLACE AND MONITORED. TOLERATING SIMPLE FACE MASK. TITRATING LEVO PER PATIENT NEEDS. IVF RUNNING PER ORDER. PICC C/D/I/P GOOD BLOOD RETURN. PIV'S C/D/I/P. CARE WILL BE ENDORSED TO ONCOMING RN FOR LOYD
--- NOTE | 2017-12-12 19:30 | NUR ---
BOILER HELPER INITIAL NOTE RECEIVED PATIENT LETHARGIC, RESPONSIVE TO PAINFUL STIMULI. NO S/S OF PAIN OR DISCOMFORT. NO RESPIRATORY DISTRESS NOTED, ON 98MAVL8 VIA SIMPLE MASK SPO2 96%. ON TELE MONITOR SR WITH OCC PVCS, SKIN WARM AND DRY TO TOUCH. WITH RIGHT NARE NGT, PATENT, INTACT, IN PLACE, ON LOW INTERMITTENT SUCTION WITH DARK BROWN OUTPUT. F/C PATENT, INTACT, DRAINING BY GRAVITY. WITH ALEXANDRA PICC LINE PATENT AND INTACT, WITH LEVO AT 6MCG/MIN, IVF AT 100ML/HR. HOB ELEVATED. SIDE RAILS UP AND LOCKED. BED KEPT AT LOWEST POSITION. TURNED AND REPOSITIONED. CALL LIGHT KEPT WITHIN EASY REACH. WILL CONTINUE TO MONITOR.
[2017-12-13] VITALS (66 sets, daily range): BP systolic 72–150; BP diastolic 42–91
--- NOTE | 2017-12-13 | NUR ---
ATTACHER NOTE RT AT BEDSIDE, OXYGEN TITRATED TO 13VOVC0 VIA SIMPLE MASK, WILL CONTINUE TO MONITOR.
[2017-12-13] MEDS: IPRATROPIUM NEB FS 0.5 MG/2.5 ML AMPUL.NEB NEB SCH ×6 (00:15→19:49)
[2017-12-13] MEDS: ALBUTEROL HALF STRENGTH 1.25 MG/3 ML VIAL.NEB NEB SCH ×6 (00:15→19:49)
[2017-12-13] MEDS: IV NS 0.9% 1,000 ML IV PRN ×3 (01:32→21:21)
--- NOTE | 2017-12-13 01:41 | NUR ---
AMERICAN HISTORY PROFESSOR NOTE RT AT BEDSIDE, OXYGEN TITRATED TO 8LPMO2 VIA SIMPLE MASK. WILL CONTINUE TO MONITOR.
--- NOTE | 2017-12-13 02:00 | NUR ---
FLIGHT SURVEYOR NOTE BED BATH GIVEN, PATIENT AROUSABLE, ABLE TO STATE NAME AND PLACE, FOLLOWS SIMPLE COMMANDS. NO RESPIRATORY DISTRESS NOTED. WILL CONTINUE TO MONITOR.
--- NOTE | 2017-12-13 03:00 | NUR ---
ACCOUNTS RECEIVABLE COORDINATOR NOTE LEVO OFF. WILL CONTINUE TO MONITOR.
--- NOTE | 2017-12-13 03:30 | NUR ---
DAIRY TESTER NOTE LEVO RESTARTED, SBP <90
[2017-12-13 04:56] LABS: BASOPHILS # (AUTO) 0.1 /CMM (0.0-0.2); BASOPHILS % (AUTO) 0.7 % (0.0-2.0); EOSINOPHILS % (AUTO) 0.7 % (0.0-6.0); HEMATOCRIT 37 % (39-51); HEMOGLOBIN 12.2 g/dL (13.5-17.5); LYMPHOCYTES # (AUTO) 1.3 /CMM (0.8-4.8); LYMPHOCYTES % (AUTO) 13.1 % (20.0-44.0); MEAN CORPUSCULAR HEMOGLOBIN 31 PG (26.0-33.0); MEAN CORPUSCULAR HGB CONC 33 g/dl (31.0-36.0); MEAN CORPUSCULAR VOLUME 95 fL (80-96); MONOCYTES # (AUTO) 1.2 /CMM (0.1-1.30); MONOCYTES % (AUTO) 12.9 % (2.0-12.0); NEUTROPHILS # (AUTO) 6.9 /CMM (1.8-8.9); NEUTROPHILS % (AUTO) 72.6 % (43.0-81.0); PLATELET COUNT (AUTO) 157 /CMM (150-450); RDW COEFFICIENT OF VARIATION 13.6 (11.5-15.0); RED BLOOD CELL COUNT(AUTO) 3.89 MIL/uL (4.5-6.0); WHITE BLOOD COUNT (AUTO) 9.5 K/uL (4.3-11.0)
[2017-12-13 05:31] LABS: ALANINE AMINOTRANSFERASE 11 U/L (12-78); ALBUMIN 2.3 g/dL (3.4-5.0); ALKALINE PHOSPHATASE 48 U/L (46-116); ASPARTATE AMINOTRANSFERASE 18 U/L (15-37); BILIRUBIN,TOTAL 0.4 mg/dL (0.2-1.0); CALCIUM, SERUM 7.5 mg/dL (8.5-10.1); CARBON DIOXIDE 29 mmol/L (21-32); CHLORIDE 109 mmol/L (98-107); CREATININE 1.8 mg/dL (0.6-1.3); GLUCOSE 134 mg/dL (74-106); POTASSIUM 4.4 mmol/L (3.5-5.1); SODIUM SERUM 143 mmol/L (136-145); TOTAL PROTEIN, SERUM 5.8 g/dL (6.4-8.2); UREA NITROGEN, BLOOD 34 mg/dL (7-18)
[2017-12-13] MEDS: ZOSYN IVPB 3.375 G in IV D5W 50ml IV SCH ×4 (05:47→23:34)
--- NOTE | 2017-12-13 07:07 | NUR ---
ANESTHESIOLOGY FELLOW CLOSING NOTE NO SIGNIFICANT CHANGES OVERNIGHT. PATIENT A/OX2, DROWSY, AROUSABLE. NO C/O PAIN OR DISCOMFORT. NO RESPIRATORY DISTRESS NOTED, ON 8LPMO2 VIA SIMPLE MASK. WITH RIGHT NGT, PATENT, INTACT, IN PLACE ON LIS WITH BROWN OUTPUT. F/C PATENT, INTACT, DRAINING BY GRAVITY. IVF RUNNING, LEVO AT 1MCG/MIN. IV LINES PATENT AND INTACT. KEPT CLEAN AND DRY. TURNED AND REPOSITIONED Q2 AND PRN. SIDE RAILS UP AND LOCKED. BED KEPT AT LOWEST POSITION. WILL ENDORSE CONTINUITY OF CARE TO AM NURSE.
--- NOTE | 2017-12-13 07:45 | NUR ---
EXTENDER RECEIVED PATIENT FROM THE PREVIOUS SHIFT. PATIENT IS IN BED. ON 8L SIMPLE MASK. STABLE VITAL SINGS. BP MONITORED. AFEBRILE. ROTH DRAINING URINE TO GRAVITY. ABLE TO VERBALIZE NEEDS. TURNED AND REPOSITIONED FOR COMFORT AND WOUND PREVENTION. WILL CONTINUE TO MONITOR AND PROVIDE CARE.
[2017-12-13] MEDS: FAMOTIDINE/PF INJ 20 MG/2 ML VIAL IV SCH ×2 (08:14→21:27)
[2017-12-13 08:38] LABS: TROPONIN I 0.017 ng/mL (0.00-0.056)
[2017-12-13 08:59] LABS: THYROID STIMULATING HORMONE 1.886 uIU/mL (0.358-3.74)
[2017-12-13 09:02] LABS: MAGNESIUM 2.6 mg/dL (1.8-2.4)
[2017-12-13] MEDS ORDERED: FEE PK DOSING 1 MIN EA MC ONE (10:44)
[2017-12-13] MEDS ORDERED: VANCOMYCIN 1 GM in IV D5W 250 ML IV ONE (11:00)
--- NOTE | 2017-12-13 13:48 | NUR ---
SENIOR STACK ENGINEER RN DISIMPACTED THE PATIENT DUE TO CONSTIPATION. LARGE BM NOTED. MADE MD AWARE. NO NEED FOR ENEMA AT THIS TIME. MD AWARE.
[2017-12-13] MEDS ORDERED: NA PHOS,M-B/NA PHOS,DI-BA 1 EA ENEMA RC PRN (14:00)
--- NOTE | 2017-12-13 19:30 | NUR ---
MASTER PLUMBER INITIAL NOTE RECEIVED PATIENT AWAKE, A/OX2, DENIES PAIN OR DISCOMFORT. NO RESPIRATORY DISTRESS NOTED, ON 4LPMO2 VIA NC SPO2 96%, DENIES SOB. DENIES N/V. ON TELE MONITOR SR, SKIN WARM AND DRY TO TOUCH. F/C PATENT, INTACT, DRAINING BY GRAVITY. WITH ALEXANDRA PICC LINE PATENT AND INTACT, WITH IVF RUNNING. HOB ELEVATED. SIDE RAILS UP AND LOCKED. BED KEPT AT LOWEST POSITION. TURNED AND REPOSITIONED. CALL LIGHT KEPT WITHIN EASY REACH. WILL CONTINUE TO MONITOR.
[2017-12-13] MEDS: ENOXAPARIN SODIUM 30 MG/0.3 ML DISP.SYRIN SQ SCH (21:00)
[2017-12-14] VITALS (35 sets, daily range): BP systolic 87–145; BP diastolic 51–94
[2017-12-14] MEDS: IPRATROPIUM NEB FS 0.5 MG/2.5 ML AMPUL.NEB NEB SCH ×7 (00:01→23:29)
[2017-12-14] MEDS: ALBUTEROL HALF STRENGTH 1.25 MG/3 ML VIAL.NEB NEB SCH ×7 (00:01→23:29)
--- NOTE | 2017-12-14 04:00 | NUR ---
STIFF LEG OPERATOR NOTE BED BATH GIVEN, LINENS CHANGED, Z GUARD APPLIED NEEDED. HEELS OFFLOADED.
[2017-12-14] MEDS ORDERED: VANCOMYCIN 0.75 GM in IV D5W 250 ML IV SCH (05:00)
[2017-12-14 05:16] LABS: BASOPHILS # (AUTO) 0.1 /CMM (0.0-0.2); BASOPHILS % (AUTO) 1.2 % (0.0-2.0); EOSINOPHILS % (AUTO) 3.7 % (0.0-6.0); HEMATOCRIT 28 % (39-51); HEMOGLOBIN 9.4 g/dL (13.5-17.5); LYMPHOCYTES # (AUTO) 0.9 /CMM (0.8-4.8); LYMPHOCYTES % (AUTO) 17.2 % (20.0-44.0); MEAN CORPUSCULAR HEMOGLOBIN 32 PG (26.0-33.0); MEAN CORPUSCULAR HGB CONC 34 g/dl (31.0-36.0); MEAN CORPUSCULAR VOLUME 94 fL (80-96); MONOCYTES # (AUTO) 0.5 /CMM (0.1-1.30); NEUTROPHILS # (AUTO) 3.3 /CMM (1.8-8.9); NEUTROPHILS % (AUTO) 66.9 % (43.0-81.0); PLATELET COUNT (AUTO) 100 /CMM (150-450); RDW COEFFICIENT OF VARIATION 13.9 (11.5-15.0); RED BLOOD CELL COUNT(AUTO) 2.96 MIL/uL (4.5-6.0)
[2017-12-14 05:32] LABS: ALANINE AMINOTRANSFERASE 10 U/L (12-78); ALBUMIN 1.9 g/dL (3.4-5.0); ALKALINE PHOSPHATASE 39 U/L (46-116); ASPARTATE AMINOTRANSFERASE 13 U/L (15-37); BILIRUBIN,TOTAL 0.4 mg/dL (0.2-1.0); CALCIUM, SERUM 6.2 mg/dL (8.5-10.1); CARBON DIOXIDE 22 mmol/L (21-32); CHLORIDE 112 mmol/L (98-107); CREATININE 1.5 mg/dL (0.6-1.3); GLUCOSE 94 mg/dL (74-106); PHOSPHORUS 2.1 mg/dL (2.5-4.9); POTASSIUM 3.6 mmol/L (3.5-5.1); SODIUM SERUM 144 mmol/L (136-145); TOTAL PROTEIN, SERUM 4.8 g/dL (6.4-8.2); UREA NITROGEN, BLOOD 24 mg/dL (7-18)
[2017-12-14] MEDS: ZOSYN IVPB 3.375 G in IV D5W 50ml IV SCH ×3 (06:06→17:02)
[2017-12-14] MEDS: IV NS 0.9% 1,000 ML IV PRN (06:20)
--- NOTE | 2017-12-14 06:52 | NUR ---
REVENUE ACCOUNTANT CLOSING NOTE NO SIGNIFICANT CHANGES OVERNIGHT. NO RESPIRATORY DISTRESS NOTED, ON 4LPMO2 VIA NC, SUCTIONED NEEDED. DENIES SOB. DENIES PAIN OR DISCOMFORT. ALL DUE MEDS GIVEN. F/C PATENT, INTACT, DRAINING BY GRAVITY. KEPT CLEAN AND DRY. TURNED AND REPOSITIONED Q2 AND PRN. PIV AND PICC LINE PATENT AND INTACT. IVF RUNNING. SIDE RAILS UP AND LOCKED. BED KEPT AT LOWEST POSITION. CALL LIGHT KEPT WITHIN EASY REACH. WILL ENDORSE CONTINUITY OF CARE TO AM NURSE. Addendum: 12/14/17 at 0658 by NANCY ROGERS RN NO EPISODE OF N/V. NO S/S OF ACTIVE BLEEDING.
--- NOTE | 2017-12-14 07:29 | NUR ---
FISH PACKER RECEIVED PATIENT FROM THE PREVIOUS SHIFT. PATIENT IS IN BED. RESTING COMFORTABLY. NO ACUTE DISTRESS NOTED. STABLE VITAL SINGS. ROTH DRAINING URINE TO GRAVITY. TURNED AND REPOSITIONED FOR COMFORT AND WOUND PREVENTION. WILL CONTINUE TO MONITOR AND PROVIDE CARE.
[2017-12-14] MEDS: HYDROCORTISONE SOD SUCCINATE 100 MG/2 ML VIAL IV SCH ×3 (09:44→17:02)
[2017-12-14] MEDS: FAMOTIDINE/PF INJ 20 MG/2 ML VIAL IV SCH ×2 (09:44→20:38)
--- NOTE | 2017-12-14 10:09 | NUR ---
AIRPORT TOWER CONTROLLER RN ASSESSED THE PATENT. PATIENT HAS PULLED OUT HIS TWO PERIPHERAL IVS AND THE PICC LINE. PATIENT HAD REMOVED HIS BP CUFF, PULSE OX PROBE. PATIENT IS NOW HOLDING ON TO THIS ROTH CATH. SAFETY ASSURED. REORIENTATION PROVIDED. COMFORT NEEDS MET. PATIENT IS STILL UNABLE TO COMPREHEND ABOUT HIS CURRENT HEALTH STATUS. NO EVIDENCE OF LEARNING. RN INFORMED MD RECEIVED ORDERS FOR SOFT WRIST RESTRAINTS. RN CALLED SUE (COUSIN) AND INFORMED ABOUT THE NECESSITY FOR RESTRAINTS PER MD ORDER.
[2017-12-14] MEDS: POTASSIUM PHOSPHATE MM 7.5 MMOL in IV D5W 100 ML IV SCH ×2 (16:33→19:45)
--- NOTE | 2017-12-14 17:11 | NUR ---
TD/RN REPORT FROM ICU - ROOM 106 REPORT GIVEN BY ICU JUSTINA, FOR PT TO BE DOWNGRADED TO TD UNIT ADMITTED FOR RESPIRATORY FAILURE UNDER THE CARE OF DR. TORRES. AWAITING FOR PT'S ARRIVAL.
[2017-12-14 17:34] LABS: HEMOGLOBIN 11.3 g/dL (13.5-17.5)
--- NOTE | 2017-12-14 17:45 | NUR ---
TD/HEALTHCARE RISK CONTROL CONSULTANT FROM ICU - 106 PT ARRIVED VIA BED, ACCOMPANIED BY ICU NURSE JUSTINA, PT A/O 1-2, MUMBLES WORDS. N/C WITH 4L O2 PLACED, SATURATING @ 97%, TELE MONITOR PLACED, SINUS RHYTHM, HR 57. IV SITES WITH ON GOING KPHOS @ 34CC/HR AND ZOSYN @ 100CC/HR IV PATENT WITH NO S/S OF INFECTION, ROTH CATHETER INTACT WITH YELLOW URINE OUTPUT. CL WITHIN REACHED AND SAFETY MAINTAINED. ON GOING MONITORING.
--- NOTE | 2017-12-14 17:58 | NUR ---
KINDER TEACHER TRANSFERRED THE PATENT TO DENZEL LEVEL CARE ON STABLE CONDITIONS. ACLS PROTOCOL.
--- NOTE | 2017-12-14 19:14 | NUR ---
TD/RN AM SHIFT END NOTES NO ACUTE CHANGE OF CONDITION SINCE PT WAS DOWNGRADED TO DENZEL LEVEL OF CARE. ALL NEEDS MET. PT ENDORSED TO PM NURSE TO CONTINUE CARE. CL WITHIN REACHED AND SAFETY MAINTAINED.
--- NOTE | 2017-12-14 19:30 | NUR ---
RN TD INITIAL NOTES, PATENT AWAKE IN BED MUMBLING MORENO THAT DOESN'T MAKE SENSE, BREATHING EVEN AND UNLABORED, NO SOB OR S/S RESPIRATORY/ACUTE DISTRESS, SR IN THE MONITOR HR 80, PATIENT ON RESTRAINS AT THIS TIME, CIRCULATION CHECKS FREQUENTLY PROVIDED, NPO AT THIS TIME FOR ASPIRATION PRECAUTIONS, RIGHT HAND AND RIGHT FA, INTACT AND PATENT, NO S/S O INFILTRATION NOTED AT THIS TIME, BED LOCKED AN D LOW POSITION, ALL NEEDS PROVIDED, WELL REPOSITIONED AT THIS TIME, CALL LIGHT W/I REACH, WILL CONTINUE TO MONITOR CLOSELY.
[2017-12-14] MEDS: ENOXAPARIN SODIUM 30 MG/0.3 ML DISP.SYRIN SQ SCH (20:39)
[2017-12-14] MEDS: VANCOMYCIN 1 GM in IV D5W 250 ML IV SCH (23:37)
[2017-12-15] VITALS: BP 132/67
[2017-12-15] MEDS: ZOSYN IVPB 3.375 G in IV D5W 50ml IV SCH ×5 (00:27→23:51)
[2017-12-15] MEDS: ALBUTEROL HALF STRENGTH 1.25 MG/3 ML VIAL.NEB NEB SCH ×6 (03:16→23:54)
[2017-12-15] MEDS: IPRATROPIUM NEB FS 0.5 MG/2.5 ML AMPUL.NEB NEB SCH ×6 (03:16→23:54)
[2017-12-15 04:00] VITALS: BP 131/70
--- NOTE | 2017-12-15 06:36 | NUR ---
RN TD CLOSING NOTES, PATENT AWAKE IN BED SLEEPING AT THIS TIME, BUT EASILY AROUSABLE TO TACTILE AND VERBAL STIMULI, BREATHING EVEN AND UNLABORED, NO SOB OR S/S RESPIRATORY/ACUTE DISTRESS, SR IN THE MONITOR HR 80'S, PATIENT ON RESTRAINS AT THIS TIME, CIRCULATION CHECKS FREQUENTLY PROVIDED, NPO AT THIS TIME FOR ASPIRATION PRECAUTIONS, RIGHT HAND AND RIGHT FA, INTACT AND PATENT, NO S/S O INFILTRATION NOTED AT THIS TIME, BED LOCKED AN D LOW POSITION, ALL NEEDS PROVIDED, WELL REPOSITIONED AT THIS TIME, NO SIGNIFICANT CHANGE IN CONDITION DURING THE NIGHT, CALL LIGHT W/I REACH, WILL ENDORSE CONTINUITY OF CARE TO ONCOMING NURSE.
[2017-12-15 06:46] LABS: CALCIUM, SERUM 7.8 mg/dL (8.5-10.1); CARBON DIOXIDE 25 mmol/L (21-32); CHLORIDE 110 mmol/L (98-107); CREATININE 1.8 mg/dL (0.6-1.3); GLUCOSE 108 mg/dL (74-106); MAGNESIUM 2.4 mg/dL (1.8-2.4); PHOSPHORUS 2.5 mg/dL (2.5-4.9); POTASSIUM 4.2 mmol/L (3.5-5.1); SODIUM SERUM 145 mmol/L (136-145); UREA NITROGEN, BLOOD 26 mg/dL (7-18)
--- NOTE | 2017-12-15 07:00 | NUR ---
RN NOTES RECEIVED PT ON BED, A/Ox1, CONFUSED , ON 4L O2 N/C , RESPIRATION EVEN AND UNLABORED, NO RESPIRATORY DISTRESS NOTED , ON TELE SR HR IN 80'S , IRA MERCADO TO KATIA, R HAND IV AND R FA IV SITES G 18 CLEAN, DRY AND INTACT, SR UP x3, CALL LIGHT WITHIN EASY REACH, BED LOCKED AND IN LOWEST POSITION , CONTINUE TO MONITOR Addendum: 12/15/17 at 0933 by MARIS CAZARES RN correction above iv G are #[id number]
[2017-12-15 07:02] LABS: BASOPHILS % (AUTO) 0.2 % (0.0-2.0); EOSINOPHILS % (AUTO) 0.1 % (0.0-6.0); HEMATOCRIT 33 % (39-51); HEMOGLOBIN 11.3 g/dL (13.5-17.5); LYMPHOCYTES # (AUTO) 0.8 /CMM (0.8-4.8); LYMPHOCYTES % (AUTO) 15.6 % (20.0-44.0); MEAN CORPUSCULAR HEMOGLOBIN 32 PG (26.0-33.0); MEAN CORPUSCULAR HGB CONC 34 g/dl (31.0-36.0); MEAN CORPUSCULAR VOLUME 94 fL (80-96); MONOCYTES # (AUTO) 0.5 /CMM (0.1-1.30); NEUTROPHILS % (AUTO) 74.1 % (43.0-81.0); PLATELET COUNT (AUTO) 119 /CMM (150-450); RDW COEFFICIENT OF VARIATION 13.3 (11.5-15.0); RED BLOOD CELL COUNT(AUTO) 3.54 MIL/uL (4.5-6.0); WHITE BLOOD COUNT (AUTO) 5.4 K/uL (4.3-11.0)
[2017-12-15 08:00] VITALS: BP 140/77
[2017-12-15] MEDS: HYDROCORTISONE SOD SUCCINATE 100 MG/2 ML VIAL IV SCH ×3 (09:02→16:43)
[2017-12-15] MEDS: FAMOTIDINE/PF INJ 20 MG/2 ML VIAL IV SCH ×2 (09:02→20:57)
[2017-12-15] MEDS: IV NS 0.9% 1,000 ML IV PRN ×2 (11:53→21:45)
[2017-12-15 12:00] VITALS: BP 139/78
--- NOTE | 2017-12-15 12:00 | NUR ---
RN NOTES PT STABLE , TOLERATING PUREE DIET WELL, CONTINUE TO MONITOR
[2017-12-15 16:00] VITALS: BP 137/77
[2017-12-15] MEDS: VANCOMYCIN 1 GM in IV D5W 250 ML IV SCH (16:45)
--- NOTE | 2017-12-15 18:54 | NUR ---
RN NOTES VSS STABLE , IVF NS AT 125CC/HR RUNNING VIA R HAND IV SITE , SR UP x3, CALL LIGHT WITHIN EASY REACH , WILL ENDOSE TO PACKING SUPERVISOR NURSE FOR CONTINUITY OF CARE.
--- NOTE | 2017-12-15 19:05 | NUR ---
VP STRATEGIC PARTNERSHIPS NOTE RECEIVED PATIENT AOX 1-2, MUMBLED SPEECH, ON 4L O2 VIA NC, NO S/SX OF RESPIRATORY OR CARDIAC DISTRESS, ON TELE SR, F/C DRAINING TO GRAVITY YELLOW URINE, SKIN IS KEPT DRY, ERLINDA SOFT WRIST RESTRAINTS, NO REDNESS OR SKIN BREAKDOWN NOTED, HOB ELEVATED ON ASPIRATION PRECAUTIONS, R HAND #20G PATENT FLUSHING WELL WITH NS AT 125 ML/HR, SAFETY MAINTAINED AT ALL TIMES, BED IN LOW LOCKED POSITION, CALL LIGHT WITHIN REACH, WILL CONTINUE TO MONITOR FOR ANY CHANGES IN CONDITION.
[2017-12-15 20:00] VITALS: BP 159/80
[2017-12-15] MEDS: ENOXAPARIN SODIUM 30 MG/0.3 ML DISP.SYRIN SQ SCH (20:57)
[2017-12-16] VITALS (7 sets, daily range): BP systolic 136–163; BP diastolic 72–87
[2017-12-16] MEDS: ALBUTEROL HALF STRENGTH 1.25 MG/3 ML VIAL.NEB NEB SCH ×6 (03:30→23:30)
[2017-12-16] MEDS: IPRATROPIUM NEB FS 0.5 MG/2.5 ML AMPUL.NEB NEB SCH ×6 (03:30→23:30)
[2017-12-16] MEDS: ZOSYN IVPB 3.375 G in IV D5W 50ml IV SCH ×4 (05:21→23:38)
[2017-12-16] MEDS: IV NS 0.9% 1,000 ML IV PRN ×2 (06:14→16:37)
[2017-12-16 06:36] LABS: CALCIUM, SERUM 7.7 mg/dL (8.5-10.1); CARBON DIOXIDE 23 mmol/L (21-32); CHLORIDE 110 mmol/L (98-107); CREATININE 1.5 mg/dL (0.6-1.3); GLUCOSE 147 mg/dL (74-106); POTASSIUM 3.6 mmol/L (3.5-5.1); SODIUM SERUM 144 mmol/L (136-145); UREA NITROGEN, BLOOD 20 mg/dL (7-18)
--- NOTE | 2017-12-16 07:30 | NUR ---
RN NOTE RECEIVED PATIENT AWAKE ALERT AND ORIENTED 1-2 WITH EPISODES OF FORGETFULNESS. BREATHING EVEN AND UNLABORED WITH NO DISTRESS NOTED. ON CONTINUOUS O2 OF 3L SATURATING WELL. ON CONTRACT PROGRAMMER SINUS TERRY HR OF 54. BILATERAL RESTRAINTS ON PATIENT WILL REMOVE Q2H RECHECK SKIN AND CIRCULATION. F/C INTACT AND PATENT WITH ADEQUATE FLOW OF URINE. RIGHT HAND IV SITE INTACT AND PATENT WITH ONGOING FLUIDS ORDERED. ALL SAFETY MEASURES DONE. BED LOW AND LOCKED POSITION. WILL CONTINUE TO MONITOR.
[2017-12-16] MEDS: FAMOTIDINE/PF INJ 20 MG/2 ML VIAL IV SCH ×2 (08:16→21:11)
[2017-12-16] MEDS: HYDROCORTISONE SOD SUCCINATE 100 MG/2 ML VIAL IV SCH ×2 (08:16→16:35)
[2017-12-16] MEDS: VANCOMYCIN 1 GM in IV D5W 250 ML IV SCH (10:28)
--- NOTE | 2017-12-16 18:50 | NUR ---
RN NOTE PATIENT REMAINED STABLE THROUGHOUT SHIFT WITH NO ACUTE CHANGES OR DISTRESS NOTED. WILL ENDORSE TO NEXT SHIFT TO CONTINUE CONTINUITY OF CARE.
--- NOTE | 2017-12-16 19:56 | NUR ---
RN OPENING NOTES RECEIVED REPORT FROM BRISA MONTIEL. PATIENT A/A/O X1-2 W/ SOME CONFUSION BUT ABLE TO MAKE SOME NEEDS KNOWN & STATE PAIN. BREATHING EVEN & UNLABORED, TOLERATING O2 @ 3LPM VIA NC. SKIN WARM, DRY & INTACT W/ PULSES PRESENT & BOUNDING. RIGHT HAND IV #22 INTACT & PATENT W/ DRESSING CDI & IVF NS INFUSING WELL @ 125 ML/HR. ROTH CATH DRAINING YELLOW URINE. DENIES ANY PAIN OR DISCOMFORT @ THIS TIME. SAFETY MEASURES IN PLACE W/ BED ALARM ON & CALL LIGHT WITHIN REACH. INSTRUCTED TO CALL FOR ANY ASSISTANCE. WILL CONTINUE TO MONITOR.
[2017-12-16] MEDS: ENOXAPARIN SODIUM 30 MG/0.3 ML DISP.SYRIN SQ SCH (21:17)
[2017-12-17 04:00] VITALS: BP 144/41
[2017-12-17] MEDS: ALBUTEROL HALF STRENGTH 1.25 MG/3 ML VIAL.NEB NEB SCH ×3 (04:18→11:28)
[2017-12-17] MEDS: IPRATROPIUM NEB FS 0.5 MG/2.5 ML AMPUL.NEB NEB SCH ×3 (04:18→11:28)
[2017-12-17] MEDS: VANCOMYCIN 1 GM in IV D5W 250 ML IV SCH (04:21)
[2017-12-17] MEDS: IV NS 0.9% 1,000 ML IV PRN (04:22)
[2017-12-17] MEDS: ZOSYN IVPB 3.375 G in IV D5W 50ml IV SCH ×2 (05:34→11:18)
[2017-12-17 06:36] LABS: CALCIUM, SERUM 7.6 mg/dL (8.5-10.1); CARBON DIOXIDE 23 mmol/L (21-32); CHLORIDE 108 mmol/L (98-107); CREATININE 1.5 mg/dL (0.6-1.3); GLUCOSE 149 mg/dL (74-106); SODIUM SERUM 142 mmol/L (136-145); UREA NITROGEN, BLOOD 14 mg/dL (7-18)
[2017-12-17 06:49] LABS: POTASSIUM 2.8 mmol/L (3.5-5.1)
--- NOTE | 2017-12-17 07:50 | NUR ---
RN NOTE RECEIVED PATIENT AWAKE ALERT AND ORIENTED X1-2 WITH EPISODES OF FORGETFULNESS. BREATHING EVEN AND UNLABORED WITH NO DISTRESS NOTED. ON CONTINUOUS O2 OF 3L SATURATING WELL. BILATERAL RESTRAINTS ON PATIENT WILL REMOVE Q2H RECHECK SKIN AND CIRCULATION. F/C INTACT AND PATENT WITH ADEQUATE FLOW OF URINE. RIGHT HAND IV SITE INTACT AND PATENT WITH ONGOING FLUIDS ORDERED. PATIENT WILL HAVE A VIDEO SWALLOW TEST TODAY. ALL SAFETY MEASURES DONE. BED LOW AND LOCKED POSITION. WILL CONTINUE TO MONITOR.
[2017-12-17 08:00] VITALS: BP 132/72
[2017-12-17] MEDS: HYDROCORTISONE SOD SUCCINATE 100 MG/2 ML VIAL IV SCH (08:41)
[2017-12-17] MEDS: FAMOTIDINE/PF INJ 20 MG/2 ML VIAL IV SCH (08:41)
[2017-12-17] MEDS: POTASSIUM CHLORIDE 20 MEQ TAB.PRT.SR PO SCH ×5 (09:51→14:03)
--- NOTE | 2017-12-17 10:15 | NUR ---
RN NOTE PATIENT WENT FOR VIDEO SWALLOW TEST. SOCIAL SCIENCES INSTRUCTOR PICKED UP PATIENT. PATIENT IN STABLE CONDITION.
--- NOTE | 2017-12-17 10:55 | NUR ---
RN NOTE PATIENT CAME BACK FROM VIDEO SWALLOW TEST. PATIENT IS STABLE WITH NO DISTRESS.
--- NOTE | 2017-12-17 15:00 | NUR ---
RN NOTE 72 YEAR OLD MALE DISCHARGED TO [facility] IN STABLE CONDITION. COMPLIANT WITH MEDICATIONS, COOPERATIVE WITH TREATMENT PLANS. TREATMENT PLANS AND MEDICAL PLANS DEFERRED FOR CONTINUAL MONITORING. EDUCATED PATIENT ABOUT AFTER CARE PLAN AND COPIES PROVIDED. RETURNED PERSONAL BELONGINGS TO PATIENT. MEDICATIONS RECONCILED, REPORT GIVEN TO CRYSTAL FROM [facility] FOR CONTINUITY OF CARE. PATIENT UNABLE TO SIGN DISCHARGE PAPERWORK, SECONDARY RN WAS ABLE TO CO-SIGN. WOUND PICTURES TAKEN AND DOCUMENTED IN CHART. PATIENT LEFT THE UNIT AT 1505 VIA AMBULANCE.
== END 2017-12-17 15:19 | DRG 720 ==
LOC: ER 11:40 → ICU 13:41 → TELE-TD 12-14 17:49 → TELE1 12-15 14:25 → MEDSG1 12-16 12:39
PROVIDERS: ADMIT Legal Medicine; ATTEND Legal Medicine
PROC: 02HV33Z Insertion of Infusion Device into Superior Vena Cava, Percutaneous Approach (ICD-10-PCS; principal; 2017-12-12)
PROC: B548ZZA Ultrasonography of Superior Vena Cava, Guidance (ICD-10-PCS; 2017-12-12)
DX: A41.9 Sepsis, unspecified organism (principal); J96.01 Acute respiratory failure with hypoxia; J69.0 Pneumonitis due to inhalation of food and vomit; R65.21 Severe sepsis with septic shock; N17.9 Acute kidney failure, unspecified; G93.40 Encephalopathy, unspecified; E87.2 Acidosis; Z93.0 Tracheostomy status; N18.3 Chronic kidney disease, stage 3 (moderate); G20 Parkinson's disease; Z87.820 Personal history of traumatic brain injury; N40.0 Benign prostatic hyperplasia without lower urinary tract symptoms; K56.41 Fecal impaction; D64.9 Anemia, unspecified; E86.0 Dehydration; E03.9 Hypothyroidism, unspecified; I12.9 Hypertensive chronic kidney disease with stage 1 through stage 4 chronic kidney disease, or unspecified chronic kidney disease; K56.7 Ileus, unspecified; E87.6 Hypokalemia; Q89.9 Congenital malformation, unspecified
CPT/HCPCS: 36415; 36569; 36600; 71045-TC; 74230-TC; 80048-TC; 80053-TC; 80061-TC; 80076-TC; 80202-TC; 82533; 83605-TC; 83735-TC; 84100-TC; 84439-TC; 84443-TC; 84484-TC; 85025-TC; 85027-TC; 85730-TC; 87040-TC; 87081-TC; 87086-TC; 92521; 92526; 93307-TC; 94799-TC; A4606; C1751; J1650; J1720; J2543; J3370; J3490; J7030; J7040; J7050; J7060; Z7610